=== PATIENT | male | born 1950 | race Caucasian/White ===

== ENCOUNTER 2017-01-22 06:48 | Inpatient (IN) | payer MEDICARE ==
[~2017-01-22] VITALS: Ht 175.3 cm; Wt 106.2 kg
[2017-01-22] MEDS: LR 1,000 ML IV SCH ×2 (00:30→12:15)
[2017-01-22] MEDS ORDERED: METO1TAB7 PO (06:57)
[2017-01-22] MEDS ORDERED: ASPI1TAB PO (06:57)
[2017-01-22] MEDS ORDERED: DIGO0.12 PO (06:57)
[2017-01-22] MEDS ORDERED: LISI-538 PO (06:57)
[2017-01-22] MEDS ORDERED: ELIQ5TAB PO (06:59)
[2017-01-22] MEDS ORDERED: ISOVUE-370 76% 100ML VIAL (Q9967) As Ordered ONE (08:04)
[2017-01-22 08:14] LABS: BASO % 0.1 % (0.0-1.0); EOS % 0.2 % (0.0-3.0); LARGE UNSTAINED CELL # 0.2 K/mm3 (0.0-0.4); LARGE UNSTAINED CELL % 1.5 % (0.0-4.0); LYMPH # 2.1 K/mm3 (1.5-4.5); LYMPH % 16.2 % (24.0-44.0); MEAN CORPUSCULAR HEMOGLOBIN 24.8 pg (27.0-33.0); MEAN CORPUSCULAR HGB CONC 32.3 g/dl (32.0-36.5); MEAN CORPUSCULAR VOLUME 76.8 fl (80.0-96.0); MONO # 1.1 K/mm3 (0.0-0.8); MONO % 8.9 % (0.0-5.0); NEUTROPHILS # 8.7 K/mm3 (1.8-7.7); NEUTROPHILS % 73.1 % (36.0-66.0); PLATELET COUNT, AUTOMATED 316 k/mm3 (150-450); RED CELL DISTRIBUTION WIDTH 17.4 % (11.5-14.5); WHITE BLOOD COUNT 11.9 K/mm3 (4.0-10.0)
[2017-01-22 08:36] LABS: ANION GAP 9 MEQ/L (8-16); BLOOD UREA NITROGEN 12 MG/DL (7-18); CALCIUM LEVEL 9.4 MG/DL (8.8-10.2); CARBON DIOXIDE LEVEL 28 MEQ/L (21-32); CHLORIDE LEVEL 99 MEQ/L (98-107); CREATININE FOR GFR 0.79 MG/DL (0.70-1.30); GLOMERULAR FILTRATION RATE > 60.0 (>49); GLUCOSE, FASTING 119 MG/DL (80-110); POTASSIUM SERUM 3.9 MEQ/L (3.5-5.1); SODIUM LEVEL 136 MEQ/L (136-145)
--- NOTE | 2017-01-22 08:39 | REP ---
Clinical: Abdominal pain. Technique: Single supine view of the abdomen and pelvis. Findings: Bowel gas pattern is nonspecific although there appears to be distended loops of small bowel measuring up to 5 cm diameter which may reflect early obstruction and correlation is recommended. Differential diagnosis includes ileus and enteritis. No obvious free air. No organomegaly. Skeletal structures demonstrate age-related degenerative changes. Phleboliths noted in the pelvis. Impression: Distended small bowel. Differential diagnosis includes early small bowel obstruction, ileus and enteritis. Close clinical observation and follow-up examination may be warranted. Signed by Kavon Irvin MD 01/22/2017 08:30 A
[2017-01-22] MEDS ORDERED: METOPROLOL SUCC (TopROL XL) 50MG **XL** TAB PO SCH (09:00)
--- NOTE | 2017-01-22 09:15 | REP ---
Clinical: Abdominal pain with history of umbilical hernia. Rule out obstruction. Comparison: None. Findings: Dilated fluid-filled small bowel extends to the cecum which also appears similarly distended and fluid-filled to the level of the proximal/mid ascending colon which then takes on a relatively normal and partially collapsed appearance to the level of the rectosigmoid. There is small amount of associated ascites as well as concern for subtle scattered hypodensities within the liver up to 1.8 cm in the posterior segment right lobe. A small midline periumbilical hernia is identified and contains small amount of fluid and stranding but without evidence for bowel. No free air or discrete drainable collection/abscess. The above mentioned findings are concerning for an obstructing lesion possibly at the level of the proximal ascending colon. Spleen, pancreas, bilateral adrenal glands and kidneys appear normal. Cholelithiasis noted without CT evidence for acute cholecystitis. Pelvis demonstrates partially collapsed normal bladder and age appropriate prostate/seminal vesicles. Small fat containing left inguinal hernia noted. Atherosclerotic changes of the aorta and vasculature noted without aneurysm. Musculoskeletal structures demonstrate degenerative changes without focal osseous abnormality. Lung bases are clear. Impression: 1. The above mentioned findings related to the small and proximal large bowel including fluid-filled dilatation as well as small amount of ascites and possible wall subtle hypodensities within the liver are concerning for the possibility of neoplastic obstruction possibly at the level of the proximal ascending colon. 2. Small ventral hernia contains fat and fluid without obstructing bowel. 3. Further chronic, nonacute changes as described above. Signed by Kavon Irvin MD 01/22/2017 09:07 A
[2017-01-22 09:26] LABS: ALBUMIN 3.5 GM/DL (3.2-5.2); ALBUMIN/GLOBULIN RATIO 0.83 (1.00-1.93); ALKALINE PHOSPHATASE 146 U/L (45-117); ALT/SGPT 29 U/L (12-78); AST/SGOT 21 U/L (15-37); BILIRUBIN,DIRECT 0.4 MG/DL (0.0-0.2); BILIRUBIN,TOTAL 1.2 MG/DL (0.2-1.0); TOTAL PROTEIN 7.7 GM/DL (6.4-8.2)
[2017-01-22] MEDS ORDERED: ONDANSETRON 4MG/2ML VIAL (J2405) IV PRN (12:15)
[2017-01-22] MEDS ORDERED: MORPHINE 2 MG/ML 1ML SYRINGE IV PRN (12:15)
[2017-01-22] MEDS ORDERED: MOM 30ML SUSPENSION UDC PO PRN (12:15)
[2017-01-22] MEDS ORDERED: ACETAMINOPHEN TAB 650MG DOSE (2X325MG) PO PRN (12:15)
[2017-01-22] MEDS: MAGNESIUM CITRATE 300 ML BTL PO ONE ×2 (12:30→21:28)
[2017-01-22] MEDS ORDERED: ERTAPENEM SODIUM 1 GM in NS MINI-BAG PLUS 50 ML IV SCH (13:00)
[2017-01-22] MEDS ORDERED: HEPARIN SOD (PORCINE) 5000 UNITS/ML VIAL IV PRN (13:45)
[2017-01-22] MEDS ORDERED: METOPROLOL 5 MG/5 ML VIAL IV SCH (13:45)
--- NOTE | 2017-01-22 14:28 | CR.PDOC ---
[facility] Consultation Consultation DATE OF CONSULTATION: Jan 22, 2017 at 06:48 PRIMARY CARE PHYSICIAN: Dr. Nate Mondragon, [place], [place] TECHNOLOGY SALES SPECIALIST: Dr. Marlo Case, [place], [place] REFERRING PROVIDER: Dr. Gonzalez ATTENDING PHYSICIAN: Dr. Montes REASON FOR CONSULTATION/CHIEF COMPLAINT: Bowel obstruction, medical consult. HISTORY OF PRESENT ILLNESS: Mr. Patrick is a 67-year-old male who presents to [facility]'s emergency Department with abdominal pain. Reports that the pain has been present for 4-6 months and was initially intermittent, but has become constant and has been worsening over the last one and half months. Patient reports the pain as a "rolling" type of pain that occurs every 2-3 minutes. Patient reports abdominal bloating. He states that there are times when the abdominal pain is minimal and he is able to consume meals without difficulty. However, there are times when he is unable to consume liquids or meals and he feels "stopped up." Patient reports taking laxatives and fleet enema and states that this causes a "blowout." He reports initial relief with the fleet enema, but states the abdominal distention and pain returns. Patient has not had an appetite over the last 2 days, feels weak, and has not been sleeping. Patient reports weight loss of approximately 20 pounds over the last 4-6 months due to abdominal pain and not being able to eat. Patient states that he has had intentional weight loss of approximately 80 pounds. Patient reports that at baseline he is able to perform all ADLs, walk up and down a flight of stairs, walk a city block all without reserve. Patient states that he had a transthoracic echocardiogram in July 2015 and a follow-up transesophageal echocardiogram in October 2015 and was reported to him that he had "a blood clot in his heart" so his drop worker opted not to perform a cardiac ablation. Patient states that he's had a cardioversion in 2014 which was unsuccessful. Patient reports a myocardial infarction at the age of 36 for which he presented to [facility]. He states that he was told it was heartburn and he was given Maalox. According to the patient in follow-up a drop worker did inform the patient that he had a heart attack. Follow-up catheterization, according to patient, revealed no damage and no stents were placed. Review of systems positive for back pain, chronic tinnitus. All of the review of systems besides positive review of systems listed previously are negative. ALLERGIES: Please see below. HOME MEDICATIONS: Please see below. PAST MEDICAL HISTORY: 1. Atrial fibrillation, on chronic anticoagulation. 2. Hypertension. 3. Myocardial infarction at age 36. 4. History of MRSA infection. PAST SURGICAL HISTORY: 1. Cardiac catheterization without stenting. 2. Cardiac cardioversion, 2014. 3. Transthoracic echocardiogram, July 2015. 4. Transesophageal echocardiogram, October 2015. 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 HEENT: Denies headache, blurry vision, double vision, transient loss of vision, itchy/scratchy eyes, nasal congestion, sinus congestion, tinnitus. CARDIOVASCULAR: Denies chest pain, palpitations. RESPIRATORY: Denies shortness of breath, wheeze. GENITOURINARY: Denies urinary frequency, urinary urgency, dysuria, hematuria. MUSCULOSKELETAL: Admits to weakness; denies muscular pain, joint pain. GASTROINTESTINAL: Admits to abdominal pain, abdominal distention, constipation; denies nausea, vomiting, diarrhea, melena, hematochezia. SKIN: Denies excessive bleeding, bruising, skin lesions, rashes. NEUROLOGICAL: Denies numbness, tingling. ENDOCRINE: Denies polyuria, polydipsia, polyphagia. HEMATOLOGIC/LYMPHATIC: Denies easy bruising, bleeding. ALLERGIC/IMMUNOLOGIC: Denies sinus congestion, itchy/watery eyes, nasal congestion. PHYSICAL EXAMINATION: VITAL SIGNS: Please see below. GENERAL APPEARANCE: Pleasant male dressed in hospital gown sitting in emergency department examination room in a chair, appears stated age, no apparent distress. HEENT: Atraumatic, normocephalic, PERRL, EOMI, oral mucosa appears pink and moist, nasal septum appears midline, edentulous (patient states he has his dentures, but does not currently wear them), nares are patent. RESPIRATORY: Clear to auscultation bilaterally, adequate inspiratory and extremity airway excursion, no wheeze, rhonchi, crackles. CARDIOVASCULAR: Irregularly irregular heart rate and rhythm, normal S1 and S2, no murmur, rub, click. ABDOMEN: Soft, distended, nontender, bowel sounds appreciated throughout. EXTREMITIES: +1 pitting edema noted in the bilateral lower extremities up to the level of the knee, peripheral pulses appreciated, equal, symmetrical, +2/4, without lesion or rash. NEUROLOGICAL: Cranial nerves II through XII appear grossly intact. PSYCHIATRIC: Alert and conversant, pleasant. LABORATORY DATA: Please see below. IMAGING: KUB IMPRESSION: Distended small bowel. Differential diagnosis includes early small bowel obstruction, ileus and enteritis. Close clinical observation and follow-up examination may be warranted. CT abdomen and pelvis with IV contrast only FINDINGS: Dilated fluid-filled small bowel extends to the cecum which also appears similarly distended and fluid-filled to the level of the proximal/mid ascending colon which then takes on a relatively normal and partially collapsed appearance to the level of the rectosigmoid. There is small amount of associated ascites as well as concern for subtle scattered hypodensities within the liver up to 1.8 cm in the posterior segment right lobe. A small midline periumbilical hernia is identified and contains small amount of fluid and stranding but without evidence for bowel. No free air or discrete drainable collection/abscess. The above mentioned findings are concerning for an obstructing lesion possibly at the level of the proximal ascending colon. Spleen, pancreas, bilateral adrenal glands and kidneys appear normal. Cholelithiasis noted without CT evidence for acute cholecystitis. Pelvis demonstrates partially collapsed normal bladder and age appropriate prostate/ seminal vesicles. Small fat containing left inguinal hernia noted. Atherosclerotic changes of the aorta and vasculature noted without aneurysm. Musculoskeletal structures demonstrate degenerative changes without focal osseous abnormality. Lung bases are clear. IMPRESSION: 1. The above mentioned findings related to the small and proximal large bowel including fluid-filled dilatation as well as small amount of ascites and possible wall subtle hypodensities within the liver are concerning for the possibility of neoplastic obstruction possibly at the level of the proximal ascending colon. 2. Small ventral hernia contains fat and fluid without obstructing bowel. 3. Further chronic, nonacute changes as described above. ASSESSMENT/PLAN: 1. Large bowel obstruction: Management deferred to primary team, general surgery. Patient's METS 4+. Cardiac risk index for preoperative risk is 6.6% and class III risk. 2. Atrial fibrillation: Adjusting patient's anticoagulation to heparin drip. Patient is on Eliquis outpatient. This is to prepare patient for surgery. Continue patient's digoxin and metoprolol. However, we'll continue patient's metoprolol as a divided dose with 25 mg twice a day. Also at patient's disposal will be metoprolol 5 mg IV every 6 hours when necessary for heart rate above 100. Obtained an EKG which showed atrial fibrillation. Obtaining stat transthoracic echocardiogram. Verbally discussed patient's case with drop worker on-call who stated that since patient's cardiac thrombus was revealed over a year ago and patient has been on chronic anticoagulation that there is no further recommendation to be made. Obtaining cardiology records from Dr. Case in [place], [place]. 3. Hypertension: Continue patient's lisinopril with holding parameters for systolic blood pressure < 110 and/or heart rate < 60. Obtaining primary care provider records from Dr. Mondragon in [place], [place]. 4. Microcytosis without anemia: Will obtain iron studies and reticulocyte count with a peripheral smear. Disposition: Admitted to the progressive care unit. Primary team is general surgery. Thank you for the consult. We will continue to follow this patient during his hospitalization. Vital Signs/I&O Vital Signs Date Time Temp Pulse Resp B/P (MAP) Pulse Ox O2 Delivery O2 Flow Rate FiO2 01/22/17 09:13 98.7 69 18 116/75 (89) 98 01/22/17 06:52 Room Air Laboratory Data Labs 24H Laboratory Tests 2 01/22/17 07:59: White Blood Count 11.9H, Red Blood Count 5.71, Hemoglobin 14.1, Hematocrit 43.8 , Mean Corpuscular Volume 76.8L, Mean Corpuscular Hemoglobin 24.8L, Mean Corpuscular Hemoglobin Concent 32.3, Red Cell Distribution Width 17.4H, Platelet Count 316, Neutrophils (%) (Auto) 73.1H, Lymphocytes (%) (Auto) 16.2L, Monocytes (%) (Auto) 8.9H, Eosinophils (%) (Auto) 0.2, Basophils (%) (Auto) 0.1 , Neutrophils # (Auto) 8.7H, Lymphocytes # (Auto) 2.1, Monocytes # (Auto) 1.1H, Eosinophils # (Auto) 0.0, Basophils # (Auto) 0.0, Large Unclassified Cells % 1.5 , Large Unclassified Cells # 0.2, Anion Gap 9, Glomerular Filtration Rate > 60.0 , Lactic Acid Level 1.8, Blood Urea Nitrogen 12, Creatinine 0.79, Sodium Level 136, Potassium Level 3.9, Chloride Level 99, Carbon Dioxide Level 28, Calcium Level 9.4, Aspartate Amino Transf (AST/SGOT) 21, Alanine Aminotransferase (ALT/ SGPT) 29, Alkaline Phosphatase 146H, Total Bilirubin 1.2H, Direct Bilirubin 0.4H , Total Protein 7.7, Albumin 3.5, Albumin/Globulin Ratio 0.83L CBC/BMP Laboratory Tests 01/22/17 07:59 Red Blood Count 5.71, Mean Corpuscular Volume 76.8 L, Mean Corpuscular Hemoglobin 24.8 L, Mean Corpuscular Hemoglobin Concent 32.3, Red Cell Distribution Width 17.4 H, Neutrophils (%) (Auto) 73.1 H, Lymphocytes (%) (Auto ) 16.2 L, Monocytes (%) (Auto) 8.9 H, Eosinophils (%) (Auto) 0.2, Basophils (%) (Auto) 0.1, Neutrophils # (Auto) 8.7 H, Lymphocytes # (Auto) 2.1, Monocytes # ( Auto) 1.1 H, Eosinophils # (Auto) 0.0, Basophils # (Auto) 0.0, Calcium Level 9.4 Allergies Coded Allergies: No Known Allergies (Unverified , 01/22/17) Home Medications Scheduled Apixaban Base (Eliquis) 5 Mg Tab, 5 MG PO BID, (Reported) Aspirin (Aspirin 81) 81 Mg Tab, 81 MG PO DAILY, (Reported) Digoxin (Digoxin) 0.125 Mg Tab, 0.125 MG PO DAILY, (Reported) Lisinopril (Lisinopril) 20 Mg Tab, 10 MG PO DAILY, (Reported) Metoprolol Succinate (Metoprolol Succinate ER) 50 Mg Tab, 50 MG PO DAILY, ( Reported) GME ATTESTATION GME ATTESTATION My preceptor for this patient encounter was physically present in the building during the encounter and was fully available. As needed, all aspects of the patient interview, examination, medical decision making process, and medical care plan development were reviewed and approved by the preceptor. Preceptor is aware and concurs with the plan as stated in the body of this note and will attest to such by his/her cosignature. ATTENDING NOTE I have both independently examined this patient as well as reviewed the note. I have discussed in detail with the resident the findings and plan of treatment as documented in the residents note. I will continue to follow the patient and offer further guidance to the patients care as necessary during this hospital stay. MAGI Qiu MDMEMarisela Jan 22, 2017 14:28 JOSE JUAN MONTES MD Jan 27, 2017 08:51
[2017-01-22 15:30] LABS: RETIC HEMOGLOBIN CONTENT CHr 28.7 PG (24-36); RETICULOCYTE % 1.5 % (0.5-1.5)
[2017-01-22 15:43] LABS: REASON FOR REVIEW COMPREHENSIVE REVIEW
[2017-01-22 16:02] LABS: PERCENT SATURATION 7.1 % (19.7-50.0)
[2017-01-22 16:15] VITALS: BP 137/95
[2017-01-22] MEDS: LISINOPRIL 10 MG TAB PO SCH (18:06)
[2017-01-22] MEDS: METOPROLOL TART 25 MG TABLET PO SCH ×2 (18:07→21:28)
[2017-01-22] MEDS: PANTOPRAZOLE 40MG INJ (PROTONIX) (C9113) IV SCH (18:08)
[2017-01-22] MEDS: DIGOXIN 0.125 MG TAB PO SCH (18:08)
[2017-01-22] MEDS: METOPROLOL 5 MG/5 ML VIAL IV SCH ×2 (18:09→22:30)
[2017-01-22] MEDS: ERTAPENEM SODIUM 1 GM in NS MINI-BAG PLUS 50 ML IV SCH (18:53)
[2017-01-22] MEDS: HEPARIN DRIP 25,000 UNITS in APPROPRIATE DILUENT 1 EA IV SCH (18:54)
[2017-01-22 19:55] VITALS: BP 138/91
[2017-01-22] MEDS ORDERED: CHLORASEPTIC SPRAY MT PRN (20:00)
[2017-01-22] MEDS ORDERED: CEPACOL LOZENGE PO PRN (20:00)
[2017-01-22 20:52] LABS: MAGNESIUM LEVEL 1.9 MG/DL (1.8-2.4)
[2017-01-22] MEDS: SENOKOT S TAB PO SCH (21:28)
[2017-01-22 23:43] VITALS: BP 152/90
[2017-01-23] MEDS: METOPROLOL 5 MG/5 ML VIAL IV SCH ×4 (03:28→21:36)
[2017-01-23] MEDS: LR 1,000 ML IV SCH ×3 (04:15→17:03)
[2017-01-23 05:42] LABS: MEAN CORPUSCULAR HEMOGLOBIN 24.3 pg (27.0-33.0); MEAN CORPUSCULAR HGB CONC 31.5 g/dl (32.0-36.5); MEAN CORPUSCULAR VOLUME 77.2 fl (80.0-96.0); RED CELL DISTRIBUTION WIDTH 17.5 % (11.5-14.5)
[2017-01-23 06:22] LABS: ALBUMIN 3.1 GM/DL (3.2-5.2); ALBUMIN/GLOBULIN RATIO 0.89 (1.00-1.93); ALKALINE PHOSPHATASE 112 U/L (45-117); ALT/SGPT 22 U/L (12-78); ANION GAP 10 MEQ/L (8-16); AST/SGOT 9 U/L (15-37); BLOOD UREA NITROGEN 12 MG/DL (7-18); CALCIUM LEVEL 8.5 MG/DL (8.8-10.2); CARBON DIOXIDE LEVEL 27 MEQ/L (21-32); CHLORIDE LEVEL 101 MEQ/L (98-107); CREATININE FOR GFR 0.64 MG/DL (0.70-1.30); GLOMERULAR FILTRATION RATE > 60.0 (>49); GLUCOSE, FASTING 100 MG/DL (80-110); MAGNESIUM LEVEL 2.1 MG/DL (1.8-2.4); POTASSIUM SERUM 3.8 MEQ/L (3.5-5.1); SODIUM LEVEL 138 MEQ/L (136-145); T UPTAKE 37 % (33-40); THYROXINE (T4) 10.2 UG/DL (4.5-12.0); TOTAL PROTEIN 6.6 GM/DL (6.4-8.2)
[2017-01-23 07:30] VITALS: BP 172/80
--- NOTE | 2017-01-23 07:53 | HPE ---
DATE OF ADMISSION: 01/22/2017 CHIEF COMPLAINT: Abdominal pain. HISTORY OF PRESENT ILLNESS: The patient is a 67-year-old male who presented to the emergency room with complaints of abdominal pain, bloating and crampy abdominal pains. These pains have been going on for about 4-6 months. They have been intermittent and he has been treating it with laxatives to have a bowel movement. Usually after he gets bloated, he is able to take laxatives and sometimes enemas, which usually cause a large volume of loose liquidy stool. Afterwards, he feels much relief. He has been going through this cycle for awhile. In addition to this, he has also had about an 80 pound weight loss for the past 6 months. He claims it is because he has not been eating much and he has been watching his diet. He has not had any previous colonoscopy in the past. No known family history of colon cancer or colon disease. He denies any fevers or chills. He has had a little bit of nausea with some vomiting now and he has had this for the past month intermittently. Prior to that, he did not have any problems with nausea or vomiting. His last bowel movement was yesterday, but it was just a small amount. Currently, he does not have any nausea or vomiting. No heartburn or acid reflux, but he is starting to feel increasingly weak. ALLERGIES: None. HOME MEDICATIONS: Please see med record. PAST MEDICAL HISTORY: 1. Atrial fibrillation, on Eliquis. 2. Hypertension and previous myocardial infarction ([place]) at the age of 36. 3. History of methicillin-resistant Staphylococcus aureus (MRSA) infection. PAST SURGICAL HISTORY: 1. Cardiac catheterization. 2. Transthoracic echo in 2016, followed by transesophageal echo which showed a blood clot in the heart. FAMILY HISTORY: Noncontributory. SOCIAL HISTORY: Denies any current drug, alcohol or tobacco abuse. REVIEW OF SYSTEMS: Per positives and negatives as stated in history of present illness (HPI). PHYSICAL EXAMINATION: General: The patient is alert and oriented times three in no acute distress. Vitals: Temperature 98.7, pulse 69, respirations 18, blood pressure 160/75, pulse oximetry 98% on room air. HEENT: Pupils equally round and react to light and accommodation. Heart: S1, S2, regular rate and rhythm. Lungs: Clear to auscultation bilaterally. Abdomen: Soft, slightly distended, diffuse tenderness, crampy type pain, no sharp pains. No rebounding or guarding. Extremities: No clubbing, cyanosis or edema. LABORATORY DATA: White count 11.9, hemoglobin 14.1 and platelets 316. PTT 28.1. Potassium 3.9, creatinine 0.79, lactic acid 1.8, total bilirubin 1.2, alkaline phosphatase 146, albumin 3.5. IMAGING STUDIES: CT of abdomen and pelvis shows small and proximal large bowel dilation as well as a small amount of ascites. There is subtle hypodensities in the liver concern for possibility of neoplastic obstruction, possible at the level of proximal ascending colon, small ventral hernia containing fat and fluid without obstructing bowel. ASSESSMENT/PLAN: The patient is a 67-year-old male presenting with no previous colonoscopy, recent weight loss, and likely ascending colon mass with liver lesions on CAT scan. I explained to the patient that at this time this is likely related to a metastatic colon cancer. However, it is difficult to discern at this time without a colonoscopy. Less likely this would be related to right-sided diverticulosis that has resulted in a stricture. With the lesion in the liver and the mass in the colon and the unexplained weight loss loss, this is more likely to be a malignancy than anything else. At this time, he will have NG tube for decompression. Would then like to start him on some laxatives to see if he can be cleared out to attempt a colonoscopy. The plan will likely be for colonoscopy followed within 24 hours by a laparoscopic colectomy. I explained this in detail to the patient and his . Understandably, this came as a shock to them and not planning to hear that diagnosis. However, we will attempt to prep him slowly to avoid the need for any type of colostomy or ileostomy. I did explain to him that even if this does not look like a mass during the colonoscopy he will likely still need a resection regardless due to the obstructive process that is going on. I have also asked the medicine team to consult due to his history of atrial fibrillation and anticoagulation. They are working on getting a cardiology consult to determine the need for repeating a YVONNE to see if he still has a clot in his heart. Will await their clearance prior to scheduling any type of surgery.
[2017-01-23] MEDS: METOPROLOL TART 25 MG TABLET PO SCH ×3 (08:05→21:36)
[2017-01-23] MEDS: DIGOXIN 0.125 MG TAB PO SCH (08:05)
[2017-01-23] MEDS: SENOKOT S TAB PO SCH ×2 (08:06→21:36)
[2017-01-23] MEDS: LISINOPRIL 10 MG TAB PO SCH (08:06)
[2017-01-23] MEDS: PANTOPRAZOLE 40MG INJ (PROTONIX) (C9113) IV SCH (08:08)
[2017-01-23] MEDS ORDERED: MAGNESIUM CITRATE 300 ML BTL PO ONE (09:00)
[2017-01-23 10:20] LABS: CARCINOEMBRYONIC ANTIGEN 1.7 NG/ML (<2.5)
[2017-01-23] MEDS: HEPARIN DRIP 25,000 UNITS in APPROPRIATE DILUENT 1 EA IV SCH (11:50)
[2017-01-23 12:00] VITALS: BP 160/90
[2017-01-23] MEDS: KETOROLAC 30 MG/ML VIAL (J1885) IV PRN ×2 (14:39→21:43)
[2017-01-23 16:00] VITALS: BP 158/91
[2017-01-23] MEDS: ERTAPENEM SODIUM 1 GM in NS MINI-BAG PLUS 50 ML IV SCH (17:03)
[2017-01-23 19:38] VITALS: BP 160/92
--- NOTE | 2017-01-23 20:38 | ECHO ---
DATE OF PROCEDURE: 01/23/2017 REFERRING PHYSICIAN: Dr. Reg Gonzalez and Yina James The study was performed on 01/23/2017 for indication cardiac dysrhythmias. The patient measures 175 cm and weighs 109 kg. DIMENSIONS: IVS: 1.3 LV: 6.0 LVPW: 1.2 LA: 4.4 Aorta: 3.8 FINDINGS: The study is of fair technical quality. Left ventricle is dilated and is globally hypokinetic. Septum is essentially akinetic. Apical segments were very poorly seen, but on some views, it appears that there might be actually dyskinetic apical motion. Overall ejection fraction is estimated in the neighborhood of 30%. Right ventricle appears dilated and mildly hypokinetic. Both atria are severely enlarged. Aortic valve has three cusps. It is sclerotic but mobility is preserved. Mitral valve also exhibits degenerative abnormalities with mitral annular calcifications, but mobility of leaflets is preserved. Tricuspid valve appears normal. Pulmonic valve also appears normal. Inferior vena cava is normal size. Aortic root, aortic arch and visualized segment of abdominal aorta appear grossly normal. Doppler interrogation reveals no significant aortic stenosis or insufficiency. There is trace mitral insufficiency and trace tricuspid insufficiency. Calculated pulmonary artery pressure is around 40 mmHg based on poor quality of TR jet, and I cannot rule out that actual PA pressure is higher. There is trace pulmonic insufficiency. Evaluation of diastolic function is inconclusive due to underlying atrial fibrillation but tissue Doppler velocities of mitral annulus are very low, and there is very rapid deceleration time on mitral inflow, indicative of likely advanced diastolic dysfunction. CONCLUSIONS: 1. Study is of fair technical quality. 2. Dilated globally hypokinetic left ventricle with septal wall motion abnormality and possibly dyskinetic motion of the apex. Overall estimated ejection fraction (EF) around 30%. 3. Hypokinetic right ventricle. 4. Severe biatrial enlargement. 5. No hemodynamically significant valvular disease. 6. Probably normal central venous pressure but at least moderate pulmonary hypertension. COMMENT: Subacute bacterial endocarditis (SBE) prophylaxis is not recommended. Of note, the patient was in atrial fibrillation with controlled rate during the study. Overall both ischemic and nonischemic etiology of the patient's cardiomyopathy should be considered.
--- NOTE | 2017-01-23 21:00 | ECGEPIP ---
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
[2017-01-24 00:22] VITALS: BP 130/81
[2017-01-24] MEDS: LR 1,000 ML IV SCH ×3 (01:21→18:21)
[2017-01-24 04:28] VITALS: BP 139/89
[2017-01-24] MEDS: METOPROLOL 5 MG/5 ML VIAL IV SCH ×4 (04:53→21:47)
[2017-01-24] MEDS: HEPARIN DRIP 25,000 UNITS in APPROPRIATE DILUENT 1 EA IV SCH ×2 (04:55→21:42)
[2017-01-24] MEDS: METOPROLOL TART 25 MG TABLET PO SCH ×3 (05:56→21:48)
[2017-01-24 06:36] LABS: MEAN CORPUSCULAR HEMOGLOBIN 25.1 pg (27.0-33.0); MEAN CORPUSCULAR HGB CONC 32.2 g/dl (32.0-36.5); MEAN CORPUSCULAR VOLUME 77.8 fl (80.0-96.0); RED CELL DISTRIBUTION WIDTH 17.2 % (11.5-14.5); WHITE BLOOD COUNT 11.8 K/mm3 (4.0-10.0)
[2017-01-24 06:58] LABS: ALBUMIN/GLOBULIN RATIO 0.86 (1.00-1.93); ALKALINE PHOSPHATASE 106 U/L (45-117); ALT/SGPT 22 U/L (12-78); ANION GAP 8 MEQ/L (8-16); AST/SGOT 14 U/L (15-37); BILIRUBIN,TOTAL 0.8 MG/DL (0.2-1.0); BLOOD UREA NITROGEN 13 MG/DL (7-18); CALCIUM LEVEL 8.6 MG/DL (8.8-10.2); CARBON DIOXIDE LEVEL 31 MEQ/L (21-32); CHLORIDE LEVEL 99 MEQ/L (98-107); CREATININE FOR GFR 0.61 MG/DL (0.70-1.30); GLOMERULAR FILTRATION RATE > 60.0 (>49); GLUCOSE, FASTING 92 MG/DL (80-110); MAGNESIUM LEVEL 2.3 MG/DL (1.8-2.4); POTASSIUM SERUM 3.6 MEQ/L (3.5-5.1); SODIUM LEVEL 138 MEQ/L (136-145); TOTAL PROTEIN 6.5 GM/DL (6.4-8.2)
[2017-01-24 08:00] VITALS: BP 144/82
[2017-01-24] MEDS: LISINOPRIL 10 MG TAB PO SCH (09:27)
[2017-01-24] MEDS: DIGOXIN 0.125 MG TAB PO SCH (09:28)
[2017-01-24] MEDS: SENOKOT S TAB PO SCH ×2 (09:28→19:28)
[2017-01-24] MEDS: PANTOPRAZOLE 40MG INJ (PROTONIX) (C9113) IV SCH (09:28)
[2017-01-24 12:00] VITALS: BP 138/78
[2017-01-24] MEDS: KETOROLAC 30 MG/ML VIAL (J1885) IV PRN (13:19)
[2017-01-24 15:57] VITALS: BP 142/78
[2017-01-24] MEDS: ERTAPENEM SODIUM 1 GM in NS MINI-BAG PLUS 50 ML IV SCH (16:08)
[2017-01-24 20:55] VITALS: BP 160/90
[2017-01-25 00:03] VITALS: BP 160/90
[2017-01-25] MEDS: LR 1,000 ML IV SCH ×3 (02:35→20:15)
[2017-01-25] MEDS: METOPROLOL 5 MG/5 ML VIAL IV SCH ×4 (03:02→22:17)
[2017-01-25] MEDS: KETOROLAC 30 MG/ML VIAL (J1885) IV PRN (04:33)
[2017-01-25 04:35] VITALS: BP 130/90
[2017-01-25] MEDS: METOPROLOL TART 25 MG TABLET PO SCH (05:38)
[2017-01-25 06:13] LABS: MEAN CORPUSCULAR HEMOGLOBIN 24.9 pg (27.0-33.0); MEAN CORPUSCULAR HGB CONC 31.3 g/dl (32.0-36.5); MEAN CORPUSCULAR VOLUME 79.4 fl (80.0-96.0); RED CELL DISTRIBUTION WIDTH 17.4 % (11.5-14.5); WHITE BLOOD COUNT 11.7 K/mm3 (4.0-10.0)
[2017-01-25 07:10] LABS: ALBUMIN 2.8 GM/DL (3.2-5.2); ALBUMIN/GLOBULIN RATIO 0.85 (1.00-1.93); ALKALINE PHOSPHATASE 95 U/L (45-117); ALT/SGPT 19 U/L (12-78); ANION GAP 11 MEQ/L (8-16); AST/SGOT 18 U/L (15-37); BILIRUBIN,TOTAL 0.7 MG/DL (0.2-1.0); BLOOD UREA NITROGEN 12 MG/DL (7-18); CALCIUM LEVEL 7.6 MG/DL (8.8-10.2); CARBON DIOXIDE LEVEL 29 MEQ/L (21-32); CHLORIDE LEVEL 101 MEQ/L (98-107); CREATININE FOR GFR 0.57 MG/DL (0.70-1.30); GLOMERULAR FILTRATION RATE > 60.0 (>49); GLUCOSE, FASTING 85 MG/DL (80-110); MAGNESIUM LEVEL 2.2 MG/DL (1.8-2.4); POTASSIUM SERUM 3.6 MEQ/L (3.5-5.1); SODIUM LEVEL 141 MEQ/L (136-145); TOTAL PROTEIN 6.1 GM/DL (6.4-8.2)
[2017-01-25 08:00] VITALS: BP 152/88
--- NOTE | 2017-01-25 08:08 | IPNPDOC ---
Text Note Date of Service The patient was seen on 01/25/17. NOTE Subjective: Patient seen and examined at bedside. No acute overnight events reported. No new medical complaints. Objective: GENERAL: NAD HEENT: NC/AT, PERRL, EOMI, NG tube in place draining brown material, edentulous (patient states he has his dentures, but does not currently wear them) RESPIRATORY: Clear to auscultation bilaterally, adequate inspiratory and extremity airway excursion, no wheeze, rhonchi, crackles. CARDIOVASCULAR: Irregularly irregular heart rate and rhythm, normal S1 and S2, no murmur, rub, click. ABDOMEN: Soft, obese, distended, nontender, bowel sounds appreciated throughout. EXTREMITIES: +1 pitting edema noted in the bilateral lower extremities up to the level of the knee, peripheral pulses appreciated, equal, symmetrical NEUROLOGICAL: Cranial nerves II through XII appear grossly intact. PSYCHIATRIC: Alert, awake oriented and conversant, pleasant. ASSESSMENT/PLAN: 1. Large bowel obstruction - Management as per primary team, general surgery - Patient's METS 4+. Cardiac risk index for preoperative risk is 6.6% and class III risk. - plan is for surgery on Sunday01/26/17 for ines-colectomy - cardiology consultation pending 2. Atrial fibrillation - RVR - have increased metoprolol - cardiology consultation pending - complicated with known left atrial thrombus - NOAC discontinued - replaced with heparin gtt - continue digoxin - continue metoprolol 5 mg IV every 6 hours when necessary for heart rate above 100 - TTE noted - Obtaining cardiology records from Dr. Case in [place], [place]. 3. Hypertension - Continue lisinopril - obtain provider records from Dr. Mondragon in [place], [place] - continue metoprolol 4. Microcytosis without anemia - Will obtain iron studies and reticulocyte count with a peripheral smear. 5. DVT prophylaxis - as per above heparin gtt Disposition: Plan for surgical intervention - ines-colectomy on Sunday01/26/17 VS,Carlito, I+O VS, Carlito, I+O Laboratory Tests 01/25/17 05:52 Red Blood Count 5.12, Mean Corpuscular Volume 79.4 L, Mean Corpuscular Hemoglobin 24.9 L, Mean Corpuscular Hemoglobin Concent 31.3 L, Red Cell Distribution Width 17.4 H, Calcium Level 7.6 L, Aspartate Amino Transf (AST/SGOT ) 18, Alanine Aminotransferase (ALT/SGPT) 19, Alkaline Phosphatase 95, Total Bilirubin 0.7, Total Protein 6.1 L, Albumin 2.8 L Vital Signs Date Time Temp Pulse Resp B/P (MAP) Pulse Ox O2 Delivery O2 Flow Rate FiO2 01/25/17 05:38 115 130/90 01/25/17 04:35 98.3 18 96 Room Air I&O- Last 24 Hours up to 6 AM 01/25/17 05:59 Intake Total 3490 ml Output Total 1950 ml Balance 1540 ml CHARLENE JUDD MD Jan 25, 2017 08:08
[2017-01-25] MEDS: DIGOXIN 0.125 MG TAB PO SCH (08:33)
[2017-01-25] MEDS: PANTOPRAZOLE 40MG INJ (PROTONIX) (C9113) IV SCH (08:34)
[2017-01-25] MEDS: LISINOPRIL 10 MG TAB PO SCH (08:34)
[2017-01-25] MEDS: SENOKOT S TAB PO SCH ×2 (08:36→20:28)
[2017-01-25] MEDS ORDERED: METOPROLOL SUCC (TopROL XL) 50MG **XL** TAB PO SCH ×2 (11:15→21:00)
[2017-01-25] MEDS: METOPROLOL TART 50 MG TAB PO SCH ×2 (11:49→20:48)
[2017-01-25 12:00] VITALS: BP 142/88
[2017-01-25] MEDS ORDERED: FLEET ENEMA PR ONE ×2 (13:45→17:15)
[2017-01-25] MEDS: HEPARIN DRIP 25,000 UNITS in APPROPRIATE DILUENT 1 EA IV SCH (15:23)
[2017-01-25 15:36] VITALS: BP 164/90
[2017-01-25] MEDS ORDERED: SODIUM CHLORIDE 0.9% INJ 10 ML SYR IV PRN (15:45)
[2017-01-25] MEDS: ERTAPENEM SODIUM 1 GM in NS MINI-BAG PLUS 50 ML IV SCH (16:57)
[2017-01-25] MEDS ORDERED: FAT EMULSION IV 20% 500 ML IV SCH (18:00)
[2017-01-25] MEDS ORDERED: AMINO AC/ELECTROLYTE/DEX/CALC 2,000 ML IV SCH (18:00)
[2017-01-25] MEDS: HumaLOG INSULIN (NovoLOG) PER UNIT SC SCH ×2 (18:00→23:54)
[2017-01-25] MEDS: SODIUM CHLORIDE 0.9% INJ 10 ML SYR IV SCH (18:00)
[2017-01-25 20:00] VITALS: BP 144/80
[2017-01-26] VITALS: BP 148/77
[2017-01-26 04:00] VITALS: BP 150/98
[2017-01-26 04:39] LABS: MEAN CORPUSCULAR HEMOGLOBIN 24.8 pg (27.0-33.0); MEAN CORPUSCULAR HGB CONC 31.5 g/dl (32.0-36.5); MEAN CORPUSCULAR VOLUME 78.6 fl (80.0-96.0); RED CELL DISTRIBUTION WIDTH 17.1 % (11.5-14.5); WHITE BLOOD COUNT 12.2 K/mm3 (4.0-10.0)
[2017-01-26] MEDS: METOPROLOL 5 MG/5 ML VIAL IV SCH ×4 (04:39→20:41)
[2017-01-26] MEDS: LR 1,000 ML IV SCH (04:40)
[2017-01-26] MEDS: SODIUM CHLORIDE 0.9% INJ 10 ML SYR IV SCH ×2 (05:13→15:38)
[2017-01-26 05:16] LABS: ALKALINE PHOSPHATASE 95 U/L (45-117); ALT/SGPT 19 U/L (12-78); ANION GAP 4 MEQ/L (8-16); AST/SGOT 20 U/L (15-37); BILIRUBIN,TOTAL 0.6 MG/DL (0.2-1.0); BLOOD UREA NITROGEN 10 MG/DL (7-18); CALCIUM LEVEL 7.9 MG/DL (8.8-10.2); CARBON DIOXIDE LEVEL 33 MEQ/L (21-32); CHLORIDE LEVEL 100 MEQ/L (98-107); CREATININE FOR GFR 0.74 MG/DL (0.70-1.30); GLOMERULAR FILTRATION RATE > 60.0 (>49); GLUCOSE, FASTING 96 MG/DL (80-110); MAGNESIUM LEVEL 2.3 MG/DL (1.8-2.4); POTASSIUM SERUM 3.6 MEQ/L (3.5-5.1); SODIUM LEVEL 137 MEQ/L (136-145)
[2017-01-26] MEDS: HumaLOG INSULIN (NovoLOG) PER UNIT SC SCH ×3 (05:20→17:04)
[2017-01-26 07:25] VITALS: BP 164/98
[2017-01-26] MEDS ORDERED: FLEET ENEMA PR ONE (08:00)
[2017-01-26] MEDS: HEPARIN DRIP 25,000 UNITS in APPROPRIATE DILUENT 1 EA IV SCH ×2 (08:08→22:25)
[2017-01-26] MEDS: METOPROLOL TART 50 MG TAB PO SCH ×2 (09:18→20:48)
[2017-01-26] MEDS: PANTOPRAZOLE 40MG INJ (PROTONIX) (C9113) IV SCH (09:18)
[2017-01-26] MEDS: SENOKOT S TAB PO SCH ×2 (09:19→20:47)
[2017-01-26] MEDS: LISINOPRIL 10 MG TAB PO SCH (09:19)
[2017-01-26] MEDS: DIGOXIN 0.125 MG TAB PO SCH (09:19)
[2017-01-26] MEDS ORDERED: PROPOFOL 200 MG/20 ML VIAL As Ordered ONE (10:39)
[2017-01-26] MEDS ORDERED: MIDAZOLAM INJ 2 MG/2 ML VIAL (J2250) As Ordered ONE (10:39)
[2017-01-26] MEDS ORDERED: LIDOCAINE 2% INJ 100 MG/5 ML SDV (FOR ANES.) As Ordered ONE (10:39)
[2017-01-26 12:05] VITALS: BP 131/80
--- NOTE | 2017-01-26 13:20 | ROOR ---
Patient Name: Duarte Patrick Procedure Date: 01/26/2017 9:53 AM Date of : 1950 Age: 67 Gender: Male Note Status: Finalized Procedure: Colonoscopy Indications: Abnormal CT of the GI tract Providers: Reg Gonzalez DO Referring MD: Reg Gonzalez DO Requesting Provider: Medicines: Propofol per Anesthesia Complications: No immediate complications. Procedure: Pre-Anesthesia Assessment: - Prior to the procedure, a History and Physical was performed, and patient medications and allergies were reviewed. The patient is competent. The risks and benefits of the procedure and the sedation options and risks were discussed with the patient. All questions were answered and informed consent was obtained. Patient identification and proposed procedure were verified by the physician, the nurse, the cigar wrapper tender automatic and the generation technician in the procedure room. Mental Status Examination: alert and oriented. Airway Examination: normal oropharyngeal airway and neck mobility. Respiratory Examination: clear to auscultation. CV Examination: normal. Prophylactic Antibiotics: The patient does not require prophylactic antibiotics. Prior Anticoagulants: The patient has taken heparin. ASA Grade Assessment: III - A patient with severe systemic disease. After reviewing the risks and benefits, the patient was deemed in satisfactory condition to undergo the procedure. The anesthesia plan was to use monitored anesthesia care (MAC). Immediately prior to administration of medications, the patient was re-assessed for adequacy to receive sedatives. The heart rate, respiratory rate, oxygen saturations, blood pressure, adequacy of pulmonary ventilation, and response to care were monitored throughout the procedure. The physical status of the patient was re-assessed after the procedure. The Colonoscope was introduced through the anus and advanced to the ascending colon. The colonoscopy was performed without difficulty. The patient tolerated the procedure well. Findings: A fungating completely obstructing large mass was found in the proximal ascending colon. The mass was circumferential. Oozing was present. Biopsies were taken with a cold forceps for histology. Estimated blood loss was minimal. The exam was otherwise without abnormality. Impression: - Likely malignant completely obstructing tumor in the proximal ascending colon. Biopsied. - The examination was otherwise normal. Recommendation: - Return patient to hospital [facility] for ongoing care. - Await pathology results. Attending Participation: I personally performed the entire procedure. Reg Gonzalez DO 01/26/2017 1:20:22 PM This report has been signed electronically. Number of Addenda: 0 Note Initiated On: 01/26/2017 9:53 AM Estimated Blood Loss: Estimated blood loss was minimal.
--- NOTE | 2017-01-26 14:19 | REP ---
Procedure: PICC line insertion with Priscila The procedure was performed under the direct supervision of Dr. Allan. The risks and benefits of the procedure were explained to the patient and informed consent was obtained. The right basilic vein was localized using ultrasound guidance. The skin was prepped and draped in a sterile fashion. 2% lidocaine was used as a local anesthetic. Using ultrasound guidance the basilic vein was cannulated and a 0.018 guidewire was inserted and advanced to the SVC using fluoroscopic guidance. The needle was removed and a 5.5 Turkish dilator and peel-away sheath was inserted over the guide wire. A 5.5 Turkish dual lumen catheter was cut to length of 44 cm. The dilator was removed and the catheter was inserted over the guide wire with the tip ending in the SVC. The peel-away sheath was removed and the catheter was flushed with heparinized saline as per Hospital protocol. The catheter was affixed to the skin and a sterile dressing was applied. The the patient tolerated the procedure well and there were no immediate complications. 0.1 minutes of fluoro time was utilized for this procedure. Reviewed by CHELO Dewitt 01/25/2017 04:15 PSigned by Braxton Allan MD 01/26/2017 02:10 P
[2017-01-26] MEDS: ERTAPENEM SODIUM 1 GM in NS MINI-BAG PLUS 50 ML IV SCH (15:44)
[2017-01-26 16:00] VITALS: BP 133/65
[2017-01-26] MEDS ORDERED: HumaLOG INSULIN (NovoLOG) PER UNIT SC SCH (18:00)
[2017-01-26] MEDS ORDERED: AMINO AC/ELECTROLYTE/DEX/CALC 2,000 ML IV SCH (18:00)
[2017-01-26] MEDS ORDERED: FAT EMULSION IV 20% 500 ML IV SCH (18:00)
[2017-01-26] MEDS ORDERED: GLUCOSE 4 GM CHEW TABLET PO PRN (18:30)
[2017-01-26] MEDS ORDERED: GLUCAGON FOR INJ 1 MG VIAL (J1610) SC PRN (18:30)
[2017-01-26] MEDS ORDERED: DEXTROSE 50% 50 ML SYRINGE IV PRN (18:30)
[2017-01-26 19:57] VITALS: BP 146/68
[2017-01-27] VITALS (7 sets, daily range): BP systolic 118–160; BP diastolic 56–82
[2017-01-27] MEDS: METOPROLOL 5 MG/5 ML VIAL IV SCH ×4 (04:00→22:00)
[2017-01-27] MEDS: SODIUM CHLORIDE 0.9% INJ 10 ML SYR IV SCH ×2 (05:01→18:40)
[2017-01-27] MEDS: HumaLOG INSULIN (NovoLOG) PER UNIT SC SCH ×6 (05:33→23:19)
[2017-01-27 06:20] LABS: MEAN CORPUSCULAR HEMOGLOBIN 31.5 pg (27.0-33.0); MEAN CORPUSCULAR HGB CONC 34.8 g/dl (32.0-36.5); RED CELL DISTRIBUTION WIDTH 17.4 % (11.5-14.5); WHITE BLOOD COUNT 7.3 K/mm3 (4.0-10.0)
[2017-01-27 06:21] LABS: MEAN CORPUSCULAR VOLUME 90.5 fl (80.0-96.0)
[2017-01-27 08:01] LABS: ALBUMIN 2.7 GM/DL (3.2-5.2); ALKALINE PHOSPHATASE 88 U/L (45-117); ALT/SGPT 19 U/L (12-78); ANION GAP 8 MEQ/L (8-16); AST/SGOT 20 U/L (15-37); BILIRUBIN,TOTAL 0.5 MG/DL (0.2-1.0); BLOOD UREA NITROGEN 10 MG/DL (7-18); CALCIUM LEVEL 7.7 MG/DL (8.8-10.2); CARBON DIOXIDE LEVEL 29 MEQ/L (21-32); CHLORIDE LEVEL 104 MEQ/L (98-107); CREATININE FOR GFR 0.55 MG/DL (0.70-1.30); GLOMERULAR FILTRATION RATE > 60.0 (>49); GLUCOSE, FASTING 119 MG/DL (80-110); MAGNESIUM LEVEL 2.1 MG/DL (1.8-2.4); POTASSIUM SERUM 3.6 MEQ/L (3.5-5.1); SODIUM LEVEL 141 MEQ/L (136-145); TOTAL PROTEIN 5.7 GM/DL (6.4-8.2)
--- NOTE | 2017-01-27 08:45 | IPNPDOC ---
Text Note Date of Service The patient was seen on 01/27/17. NOTE Subjective: Patient seen and examined at bedside. No acute overnight events reported. No new medical complaints. Objective: GENERAL: NAD, sitting comfortably in chair HEENT: NC/AT, PERRL, EOMI, NG tube in place, edentulous (patient states he has his dentures, but does not currently wear them) RESPIRATORY: CTA B/L. CARDIOVASCULAR: Irregularly irregular, +S1S2 ABDOMEN: Soft, obese, distended, NT, +BS EXTREMITIES: +1 pitting edema B/L LE PSYCHIATRIC: AAOx3, conversant, pleasant. ASSESSMENT/PLAN: 1. Proximal ascending colon total obstruction - high suspicion for malignancy - pathology results pending - s/p colonoscopy 01/26/17 - management as per primary team, general surgery - patient previously optimized for planned surgical intervention - Patient's METS 4+. Cardiac risk index for preoperative risk is 6.6% and class III risk. - plan is for ines-colectomy - 01/29/17 2. Atrial fibrillation - RVR resolved - have increased metoprolol - cardiology consultation pending - complicated with known left atrial thrombus - NOAC discontinued - replaced with heparin gtt - continue digoxin - continue metoprolol 5 mg IV every 6 hours when necessary for heart rate above 100 - TTE noted - Obtaining cardiology records from Dr. Case in [place], [place]. 3. Hypertension - Continue lisinopril - obtain provider records from Dr. Mondragon in [place], [place] - continue metoprolol 4. Microcytosis without anemia 5. DVT prophylaxis - as per above heparin gtt Disposition: Plan for surgical intervention - ines-colectomy on 01/29/17 VS,Carlito, I+O VS, Carlito, I+O Laboratory Tests 01/27/17 05:50 Red Blood Count 4.10 L, Mean Corpuscular Volume 90.5 #, Mean Corpuscular Hemoglobin 31.5, Mean Corpuscular Hemoglobin Concent 34.8, Red Cell Distribution Width 17.4 H 01/27/17 07:00 Calcium Level 7.7 L, Aspartate Amino Transf (AST/SGOT) 20, Alanine Aminotransferase (ALT/SGPT) 19, Alkaline Phosphatase 88, Total Bilirubin 0.5, Total Protein 5.7 L, Albumin 2.7 L Vital Signs Date Time Temp Pulse Resp B/P (MAP) Pulse Ox O2 Delivery O2 Flow Rate FiO2 01/27/17 07:25 96.9 61 20 140/70 (93) 97 Room Air I&O- Last 24 Hours up to 6 AM 01/27/17 05:59 Intake Total 2890 ml Output Total 1200 ml Balance 1690 ml CHARLENE JUDD MD Jan 27, 2017 08:45
[2017-01-27] MEDS: PANTOPRAZOLE 40MG INJ (PROTONIX) (C9113) IV SCH ×2 (09:00→09:25)
[2017-01-27] MEDS: METOPROLOL TART 50 MG TAB PO SCH ×2 (09:25→20:16)
[2017-01-27] MEDS: LISINOPRIL 10 MG TAB PO SCH (09:25)
[2017-01-27] MEDS: DIGOXIN 0.125 MG TAB PO SCH (09:25)
[2017-01-27] MEDS: SENOKOT S TAB PO SCH ×2 (09:26→20:16)
[2017-01-27 13:20] LABS: DIGOXIN LEVEL 0.3 NG/ML (0.5-2.0)
[2017-01-27] MEDS: ERTAPENEM SODIUM 1 GM in NS MINI-BAG PLUS 50 ML IV SCH (15:40)
[2017-01-27] MEDS: HEPARIN DRIP 25,000 UNITS in APPROPRIATE DILUENT 1 EA IV SCH (15:41)
--- NOTE | 2017-01-27 16:55 | IPN ---
DATE: 01/27/2017 SUBJECTIVE: The patient is awaiting a right hemicolectomy for an obstructing right colon cancer. Surgery is tentatively planned for January 29. The patient denies any abdominal pain. He has been having some loose watery stools. He remains on total parenteral nutrition (TPN). OBJECTIVE: Most recent vital signs: Temperature 96, pulse 60, respirations 18 and blood pressure of 130/80. Room air oxygen saturation was 98. Intake and output on 01/26 was 3550 in, with 400 out, as well as some unrecorded voided urine. So far on 01/27, he has 800 mL of urine recorded. PHYSICAL EXAMINATION: The patient is sitting up in chair. He appears comfortable. He has some questions about the causes of his diarrhea. Sclerae are anicteric. His skin is warm and dry. Heart exam shows an irregular rhythm. The lungs are clear. The abdomen is soft and nontender. He has some pitting edema of his lower extremities. LABORATORY DATA: Today, white count is seven, hemoglobin 13, hematocrit 37 with a platelet count of 203. Chemistry profile, electrolytes were normal. BUN is 10 with a creatinine of 0.6 and the glucose is 119. Total protein is 5.7 with an albumin of 2.7. His digoxin level today is 0.3. IMPRESSION: Obstructing right colon cancer. PLAN: Patient is anticipating surgery on Monday 01/29. He is on total parenteral nutrition. He has a nasogastric tube in place which is clamped during the day and to intermittent suction at night per Dr. Gonzalez's orders. The patient reports he is having some loose stool and I reassured him that this should not be a problem for his surgery. His TPN will be continued. I will try to determine if a carcinoembryonic antigen (CEA) level has been done and if not, will order one. KELBY
[2017-01-27] MEDS ORDERED: FAT EMULSION IV 20% 500 ML IV SCH (18:00)
[2017-01-27] MEDS ORDERED: AMINO AC/ELECTROLYTE/DEX/CALC 2,000 ML IV SCH (18:00)
[2017-01-27] MEDS ORDERED: HumaLOG INSULIN (NovoLOG) PER UNIT SC SCH (20:30)
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
[2017-01-28] MEDS: METOPROLOL 5 MG/5 ML VIAL IV SCH ×4 (04:00→22:00)
[2017-01-28 04:08] VITALS: BP 138/72
[2017-01-28] MEDS: SODIUM CHLORIDE 0.9% INJ 10 ML SYR IV SCH ×2 (05:53→18:00)
[2017-01-28] MEDS: HumaLOG INSULIN (NovoLOG) PER UNIT SC SCH ×4 (06:00→23:48)
[2017-01-28 06:02] LABS: MEAN CORPUSCULAR HEMOGLOBIN 24.6 pg (27.0-33.0); MEAN CORPUSCULAR HGB CONC 30.7 g/dl (32.0-36.5); RED CELL DISTRIBUTION WIDTH 17.3 % (11.5-14.5); WHITE BLOOD COUNT 7.5 K/mm3 (4.0-10.0)
[2017-01-28 06:30] LABS: MEAN CORPUSCULAR VOLUME 80.2 fl (80.0-96.0)
[2017-01-28 06:55] LABS: ALBUMIN 2.9 GM/DL (3.2-5.2); ALBUMIN/GLOBULIN RATIO 0.94 (1.00-1.93); ALKALINE PHOSPHATASE 96 U/L (45-117); ALT/SGPT 21 U/L (12-78); ANION GAP 8 MEQ/L (8-16); AST/SGOT 26 U/L (15-37); BILIRUBIN,TOTAL 0.5 MG/DL (0.2-1.0); BLOOD UREA NITROGEN 10 MG/DL (7-18); CALCIUM LEVEL 8.6 MG/DL (8.8-10.2); CARBON DIOXIDE LEVEL 28 MEQ/L (21-32); CHLORIDE LEVEL 105 MEQ/L (98-107); CREATININE FOR GFR 0.59 MG/DL (0.70-1.30); GLOMERULAR FILTRATION RATE > 60.0 (>49); GLUCOSE, FASTING 83 MG/DL (80-110); MAGNESIUM LEVEL 2.2 MG/DL (1.8-2.4); POTASSIUM SERUM 4.2 MEQ/L (3.5-5.1); SODIUM LEVEL 141 MEQ/L (136-145)
[2017-01-28 07:40] VITALS: BP 130/88
[2017-01-28] MEDS: LISINOPRIL 10 MG TAB PO SCH (08:37)
[2017-01-28] MEDS: METOPROLOL TART 50 MG TAB PO SCH ×2 (08:37→21:10)
[2017-01-28] MEDS: PANTOPRAZOLE 40MG INJ (PROTONIX) (C9113) IV SCH (08:37)
[2017-01-28] MEDS: SENOKOT S TAB PO SCH ×2 (08:37→21:00)
[2017-01-28] MEDS: HEPARIN DRIP 25,000 UNITS in APPROPRIATE DILUENT 1 EA IV SCH (08:56)
--- NOTE | 2017-01-28 09:10 | ECGEPIP ---
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
--- NOTE | 2017-01-28 10:25 | IPN ---
DATE: 01/28/2017 Patient is awaiting surgery for his right colon cancer tomorrow. He is alert and oriented, sitting up in a chair. His heparin drip continues as does his total parenteral nutrition (TPN). His nasogastric (NG) tube is in place but clamped. Vital signs this morning show a temperature of 97.4, pulse 56, respirations 18, blood pressure 130/88 with a room air saturation of 98%. Intake and output 01/27/2017 showed 24 60 and 2100 out with several small loose bowel movements. Physical exam shows a pleasant man in no obvious discomfort. Heart exam shows an irregular rhythm. The lungs are clear. The abdomen is soft with active bowel sounds and is nontender. Lower extremities show some pitting edema in the lower legs. Labs: WBC 7.5, hemoglobin 12, hematocrit 38 and platelet count 173,000. PTT this morning is 75.3. Chemistry panel shows normal electrolytes with BUN of 10, creatinine 0.6 and glucose 83. Total protein is 6.0 with an albumin of 2.9. IMPRESSION: 1. Obstructing right colon cancer, now currently adequately decompressed with some small loose bowel movements. 2. Atrial fibrillation on heparin drip. PLAN: Patient is for right hemicolectomy as an add-on on 01/29/2017. His heparin will need to be discontinued appropriately. I will continue his TPN today. MTDD
[2017-01-28 12:00] VITALS: BP 128/72
--- NOTE | 2017-01-28 12:07 | IPN ---
DATE: 01/28/2017 Mr. Duarte Patrick was seen this morning. He was sitting in the chair, in no acute distress at rest and his was at bedside. He denies any chest pain, shortness of breath, palpitations. He has been ambulating. He denies any bleeding. He has no cough. The immediate plan is to proceed with abdominal surgery tomorrow, 01/29/2017. On physical examination: Patient is alert and oriented, in no acute distress at rest, and his vital signs this morning revealed a blood pressure 130/88 with a pulse that varies between 56-84, respirations 18 and his maximum temperature is 97.6 degrees Fahrenheit with an oxygen saturation of 98% on room air. He has a positive fluid balance of about 300 mL on 01/27/2017 and on 01/26/2017 it was 3.1 liters. His weight today is 106.5 kg and yesterday it was 106.6 kg. Examination of the head is as normocephalic, atraumatic. The lungs did not reveal any wheezing or crackles. The heart examination revealed irregularly irregular heart sounds, 4 gallops. The point of maximal impulse (PMI) is slightly displaced inferiorly. There is no rub. I could not appreciate any murmurs. Abdominal examination was not done. Extremities revealed trace to +1 bilateral lower leg edema. Neurological examination is negative for focal deficit. LABORATORIES: CBC on 01/28/2017 revealed a WBC of 7.5, hemoglobin 11.7, hematocrit 38.1 and platelets 173,000. BMP revealed a sodium of 141, potassium 4.2, chloride 105, CO2 28, BUN 10, creatinine 0.59, GFR more than 60, fasting glucose 83, and calcium 8.6. Serum magnesium is 2.2. Strips were reviewed and revealed atrial fibrillation with a controlled ventricular rate. Mr. Duarte Patrick seems to be stable from a cardiac point of view. He gave a history of CAD, myocardial infarction many years ago, and on the echocardiogram done on 01/23/2017 he was found to have a depressed global left ventricular systolic function estimated at 30%. Prior to that, he thinks that his heart function has been stable. He is well compensated, on a beta-peyton and angiotensin-converting enzyme (HARMONY) inhibitor. His digoxin was discontinued yesterday because of bradycardia and reported pauses. He may proceed as scheduled of his surgery, moderate risk and fluid overload should be avoided. After the surgery, he can be started on IV Lopressor. The HARMONY inhibitor can be held, but if needed for his blood pressure, it can be given also IV HARMONY inhabitants. IV furosemide can be used as needed to control his fluid balance. We should continue with telemetry and deep venous thrombosis (DVT) prophylaxis. Currently, he is on IV heparin. Sometime this coming week, as mentioned in the consult note, we should try to get a copy of his echocardiogram and transesophageal echocardiogram done last year by his parts picker in [place] for possible thrombus noted at the apex of the left ventricle. KELBY
[2017-01-28 16:00] VITALS: BP 120/82
[2017-01-28] MEDS: ERTAPENEM SODIUM 1 GM in NS MINI-BAG PLUS 50 ML IV SCH (16:14)
[2017-01-28] MEDS ORDERED: AMINO AC/ELECTROLYTE/DEX/CALC 2,000 ML IV SCH (18:00)
[2017-01-28] MEDS ORDERED: FAT EMULSION IV 20% 500 ML IV SCH (18:00)
[2017-01-28 19:45] VITALS: BP 138/72
[2017-01-28 23:20] VITALS: BP 130/74
[2017-01-29] VITALS (8 sets, daily range): BP systolic 116–222; BP diastolic 62–130
[2017-01-29] MEDS: METOPROLOL 5 MG/5 ML VIAL IV SCH ×4 (04:00→22:39)
[2017-01-29] MEDS: SODIUM CHLORIDE 0.9% INJ 10 ML SYR IV SCH ×2 (04:58→18:00)
[2017-01-29] MEDS: HumaLOG INSULIN (NovoLOG) PER UNIT SC SCH ×3 (06:00→17:35)
[2017-01-29 06:06] LABS: MEAN CORPUSCULAR HGB CONC 31.4 g/dl (32.0-36.5); MEAN CORPUSCULAR VOLUME 79.6 fl (80.0-96.0); RED CELL DISTRIBUTION WIDTH 17.4 % (11.5-14.5); WHITE BLOOD COUNT 6.4 K/mm3 (4.0-10.0)
[2017-01-29 06:36] LABS: ALBUMIN/GLOBULIN RATIO 0.91 (1.00-1.93); ALKALINE PHOSPHATASE 110 U/L (45-117); ALT/SGPT 25 U/L (12-78); ANION GAP 6 MEQ/L (8-16); AST/SGOT 25 U/L (15-37); BILIRUBIN,TOTAL 0.9 MG/DL (0.2-1.0); BLOOD UREA NITROGEN 10 MG/DL (7-18); CALCIUM LEVEL 8.3 MG/DL (8.8-10.2); CARBON DIOXIDE LEVEL 29 MEQ/L (21-32); CHLORIDE LEVEL 104 MEQ/L (98-107); CREATININE FOR GFR 0.64 MG/DL (0.70-1.30); GLOMERULAR FILTRATION RATE > 60.0 (>49); GLUCOSE, FASTING 79 MG/DL (80-110); MAGNESIUM LEVEL 2.3 MG/DL (1.8-2.4); POTASSIUM SERUM 4.2 MEQ/L (3.5-5.1); SODIUM LEVEL 139 MEQ/L (136-145); TOTAL PROTEIN 6.3 GM/DL (6.4-8.2)
--- NOTE | 2017-01-29 08:44 | IPN ---
DATE: 01/29/2017 Mr. Patrick just had a NG tube pulled out when I walked into the room and he still had a lot of discomfort in his throat, but nevertheless he tells me he feels reasonably well. There is a plan to have a hemicolectomy later today. Actually, his heparin was discontinued at approximately 2:00 a.m. in preparation for a 10:00 a.m. surgery, but it turns out that it will not be until about 3 o'clock in the afternoon. Vital Signs: Blood pressure 138/82. Heart rate around 70. I reviewed his telemetry tracing. There were no long pauses last night, but he had few episodes of relatively mild bradycardia in the high 40s. His weight is 103 kg. Fluid balance was slightly positive yesterday. He is alert and oriented appropriate. His jugular venous pulse (JVP) is not up. Lungs are fairly clear to auscultation. I do not appreciate any crackles, wheezing or rhonchi. Heart: Exam muffled due to his obesity, but irregular rhythm. No gallop. There is a faint murmur at the apex. Abdomen is soft, but mildly distended. There is trace peripheral edema. Neurologically, he is intact. Laboratory-miguel, CBC: Hemoglobin 11.5, hematocrit 36 and platelet count 173,000. Basic metabolic panel is normal. Liver function tests are normal. Albumin is 3.0. ASSESSMENT/PLAN: Mr. Patrick is a 67-year-old man who receives most of his medical care in [place]. We know that he has severe LV systolic dysfunction and chronic atrial fibrillation, but the etiology is not completely clear. The patient states that he had a myocardial infarction approximately 30 years ago, but at that point no intervention was performed. Nevertheless, he has good exertional tolerance at his baseline. He denies any dyspnea or paroxysmal nocturnal dyspnea (PND). He has no anginal symptoms. He is facing essential surgery as his large colon is virtually completely obstructed by a large mass. Consequently, I think he should proceed. The digoxin was discontinued because he had pauses, but he is reasonably well-controlled on metoprolol only. I do not appreciate any clinical congestive heart failure. Unfortunately, his heparin was discontinued a little sooner than would have been desired, but at this point I do not believe that reintroducing the infusion for only about 3 or 4 hours will actually make any significant reduction in thromboembolic risk and consequently I will leave him without heparin until the surgery is done this afternoon.
[2017-01-29] MEDS: PANTOPRAZOLE 40MG INJ (PROTONIX) (C9113) IV SCH (09:00)
[2017-01-29] MEDS: SENOKOT S TAB PO SCH ×2 (09:00→22:44)
[2017-01-29] MEDS: METOPROLOL TART 50 MG TAB PO SCH ×2 (09:12→21:00)
[2017-01-29] MEDS: LISINOPRIL 10 MG TAB PO SCH (09:13)
[2017-01-29] MEDS: ERTAPENEM SODIUM 1 GM in NS MINI-BAG PLUS 50 ML IV SCH (15:48)
[2017-01-29] MEDS ORDERED: DESFLURANE 240 ML INHALANT As Ordered ONE (16:15)
[2017-01-29] MEDS ORDERED: SEVOFLURANE INHAL SOLN 250 ML BTL As Ordered ONE (16:17)
[2017-01-29] MEDS ORDERED: BUPIVACAINE/EPIN 0.25% 30 ML VIAL As Ordered ONE (16:42)
[2017-01-29] MEDS ORDERED: ETOMIDATE INJ 20MG/10ML VIAL As Ordered ONE (17:24)
[2017-01-29] MEDS ORDERED: MIDAZOLAM INJ 2 MG/2 ML VIAL (J2250) As Ordered ONE (17:24)
[2017-01-29] MEDS ORDERED: fentaNYL 100 MCG/2 ML INJECTION (J3010) As Ordered ONE ×4 (17:24→20:36)
[2017-01-29] MEDS ORDERED: ePHEDrine SULFATE 25 MG/5 ML(5MG/ML) SYRINGE As Ordered ONE (17:24)
[2017-01-29] MEDS ORDERED: PHENYLephrine HCL 500 MCG/5 ML (100MCG/ML) SYRINGE (J2370) As Ordered ONE (17:24)
[2017-01-29] MEDS ORDERED: LIDOCAINE 2% INJ 100 MG/5 ML SDV (FOR ANES.) As Ordered ONE (17:24)
[2017-01-29] MEDS ORDERED: ROCURONIUM BROMIDE 50 MG/5 ML VIAL/SYRINGE As Ordered ONE ×2 (17:24→19:08)
[2017-01-29] MEDS ORDERED: SUCCINYLCHOLINE 100 MG/5 ML SYRINGE (J0330) As Ordered ONE (17:25)
[2017-01-29] MEDS ORDERED: ESMOLOL INJ 100MG/10ML VIAL As Ordered ONE (17:56)
[2017-01-29] MEDS ORDERED: METOPROLOL 5 MG/5 ML VIAL As Ordered ONE (18:38)
[2017-01-29] MEDS ORDERED: ONDANSETRON 4MG/2ML VIAL (J2405) As Ordered ONE (19:14)
[2017-01-29] MEDS ORDERED: MORPHINE 10 MG/ML 1ML VIAL As Ordered ONE (19:16)
[2017-01-29] MEDS ORDERED: GLYCOPYRROLATE INJ 0.2 MG/ML 2 ML VIAL As Ordered ONE (19:19)
[2017-01-29] MEDS ORDERED: NEOSTIGMINE 1MG/ML 5 ML SYRINGE (J2710) As Ordered ONE (19:19)
[2017-01-29] MEDS: LR 1,000 ML IV SCH (19:45)
[2017-01-29] MEDS ORDERED: MORPHINE 2 MG/ML 1ML SYRINGE As Ordered ONE ×4 (19:55→20:26)
[2017-01-29] MEDS: MORPHINE 2 MG/ML 1ML SYRINGE IV PRN ×4 (19:55→20:25)
[2017-01-29] MEDS ORDERED: ONDANSETRON 4MG/2ML VIAL (J2405) IV PRN ×2 (20:00→21:00)
[2017-01-29] MEDS ORDERED: LR 1,000 ML IV SCH (20:00)
[2017-01-29] MEDS ORDERED: fentaNYL 100 MCG/2 ML INJECTION (J3010) IV PRN (20:00)
[2017-01-29] MEDS ORDERED: KETOROLAC 30 MG/ML VIAL (J1885) As Ordered ONE (20:42)
[2017-01-29] MEDS ORDERED: KETOROLAC 30 MG/ML VIAL (J1885) IV ONE (20:45)
[2017-01-29] MEDS ORDERED: NS 1,000 ML IV SCH (20:53)
[2017-01-29] MEDS ORDERED: MORPHINE 1MG/ML IN 0.9% NACL 100ML IV BAG As Ordered ONE (20:57)
[2017-01-29] MEDS ORDERED: NALOXONE INJ 0.4 MG/1 ML VIAL (J2310) IV PRN (21:00)
[2017-01-29] MEDS ORDERED: NALBUPHINE HCL 10 MG/ML AMP (J2300) IV PRN (21:00)
[2017-01-29] MEDS ORDERED: diphenhydrAMINE INJ 50MG/ML VIAL (J1200) IV PRN (21:00)
[2017-01-29] MEDS ORDERED: MORPHINE 1MG/ML IN 0.9% NACL 100ML IV BAG IV PRN (21:00)
[2017-01-29] MEDS ORDERED: EPIDURAL/PCA KEYS XX PRN (21:00)
[2017-01-29] MEDS ORDERED: METOPROLOL TART 50 MG TAB As Ordered ONE (21:36)
[2017-01-30] VITALS (8 sets, daily range): BP systolic 136–170; BP diastolic 78–104
[2017-01-30] MEDS: HumaLOG INSULIN (NovoLOG) PER UNIT SC SCH ×4 (00:53→17:58)
[2017-01-30] MEDS: LR 1,000 ML IV SCH ×3 (00:56→19:59)
[2017-01-30] MEDS: KETOROLAC 30 MG/ML VIAL (J1885) IV SCH ×4 (01:54→18:03)
[2017-01-30] MEDS: METOPROLOL 5 MG/5 ML VIAL IV SCH (05:26)
--- NOTE | 2017-01-30 06:45 | RO ---
DATE OF PROCEDURE: 01/29/2017 PREOPERATIVE DIAGNOSIS: Right colon mass and incarcerated umbilical hernia. POSTOPERATIVE DIAGNOSIS: Right colon mass and incarcerated umbilical hernia. PROCEDURE: Laparoscopic right hemicolectomy with open repair of incarcerated umbilical hernia. SURGEON: Dr. Reg Gonzalez SCALING MACHINE OPERATOR: Dr. Fontenot ANESTHESIA: General. ESTIMATED BLOOD LOSS: 50. COMPLICATIONS: None. INDICATIONS FOR PROCEDURE: The patient is a 67-year-old male who presents to the emergency room (ER) with abdominal pain, nausea and vomiting and found to have a complete versus partial colonic obstruction on CAT scan. He had a colonoscopy completed on Sunday which did confirm that there is a mass in the ascending colon that was unable to be traversed. Biopsies were taken at the time of pathology and still pending. However, due to the obstruction recommendation was to proceed with laparoscopic possible open right hemicolectomy as well as repair of his umbilical hernia at the same time. Risks and benefits of the procedure not limited to, but including bleeding, infection, hernia formation, hernia recurrence, damage to surrounding structures and possible need for further surgery were all discussed with the patient. Informed consent was obtained and the procedure was planned. PROCEDURE: The patient brought back to operating room two after sufficient sedation and the abdomen was sterilely prepped and draped. Next, a time-out was done to confirm proper patient and proper procedure. Following that, a 5 mm incision made in the left lower quadrant, a Veress needle was inserted and the abdomen was insufflated to 15 mm of Mercury. Next, the Veress needle was removed. A 5 mm OptiView port was used to gain access to the abdomen. Once the abdomen was entered, another 5 mm port was placed supraumbilically in the midline, and another 5 mm port in the left lower quadrant. Next, using the Enseal, the hernia contents and hernia sac were carefully dissected free from the umbilical hernia leaving the defect. Once that was completed, starting with the omentum, it was transected from the proximal third of the transverse colon down. Next, the gastrocolic ligament was entered and this was carefully dissected free all way around the hepatocolic ligament around the hepatic flexure of the colon. Next, the peritoneal reflection all along the descending colon was taken down. There were adhesions high up on the lateral right wall around where the mass was located. This was all dissected carefully and the peritoneum in this area was all taken along with the specimen all the way down around the base of the appendix. This dissection was continued superior and inferiorly as we continued to mobilize the right colon towards the midline. Once this was all completely mobilized and the colon was dissected free from the duodenum and able to reach over towards the midline, the midline incision was made for about 6 cm right at the site of the supraumbilical 5 mm port site. The skin incision was made. Electrocautery was used to carry the incision down through the fascia and into the abdomen. Once the abdomen was entered, the Mobius wound protector was placed. The specimen was then brought out through the incision. Anastomosis locations were identified in both the transverse colon as well as the terminal ileum. These were brought together and little windows were made in the mesentery at each of these positions. A [id number] stapler was used to transect the colon and the terminal ileum at these points. Next, the mesentery was carefully taken down using the Enseal where the ileocolic vessel was identified. This was carefully isolated using the Enseal and then the vessel was clamped on both sides, cut with the Enseal and then #0 Vicryl suture tie was also used to ligate the proximal side as reinforcement. Once this was completed, the specimen was all removed. Next, a tqio-ut-ldpe anastomosis was done between the transverse colon and the terminal ileum. This was done using two [id number] staplers. Once that was completed, the corners were oversewn with Lembert sutures with #3-0 silk suture. The anastomosis was then covered with a layer of Tisseel and then placed back inside the abdomen. A 19-Yakut Daron drain was placed over top of the anastomosis and brought out through the left lower quadrant port site. The fascial defect at the umbilical hernia was then closed from the inside using interrupted #0 Vicryl sutures and looped PDS was then used to reapproximate the fascia at the extraction site for the colon in the midline. This was done in a running fashion. Once that was completed, jaswinder were used to approximate the skin edges. A drain that was brought out through the left lower quadrant was left in place. The abdomen was reinsufflated. Laparoscopically, the drain was placed right over top of the anastomosis. Any signs of residual bleeding were looked for, nothing was identified. The abdomen then desufflated again. The drain was sutured in place with a #3-0 Prolene suture. The ports were removed. The port sites were closed with jaswinder, thus completing the procedure. The patient tolerated the procedure well and was sent to postanesthesia care unit (PACU) in stable condition.
[2017-01-30] MEDS: SODIUM CHLORIDE 0.9% INJ 10 ML SYR IV SCH ×2 (06:46→17:28)
[2017-01-30 07:10] LABS: BASO % 0.2 % (0.0-1.0); EOS # 0.1 K/mm3 (0.0-0.50); EOS % 0.6 % (0.0-3.0); LARGE UNSTAINED CELL # 0.2 K/mm3 (0.0-0.4); LARGE UNSTAINED CELL % 1.8 % (0.0-4.0); LYMPH # 1.8 K/mm3 (1.5-4.5); MEAN CORPUSCULAR HEMOGLOBIN 24.3 pg (27.0-33.0); MEAN CORPUSCULAR VOLUME 81.2 fl (80.0-96.0); MONO # 0.7 K/mm3 (0.0-0.8); MONO % 6.9 % (0.0-5.0); NEUTROPHILS % 75.3 % (36.0-66.0); PLATELET COUNT, AUTOMATED 155 k/mm3 (150-450); RED CELL DISTRIBUTION WIDTH 17.7 % (11.5-14.5); WHITE BLOOD COUNT 10.6 K/mm3 (4.0-10.0)
[2017-01-30 07:31] LABS: ALBUMIN 2.8 GM/DL (3.2-5.2); ALBUMIN/GLOBULIN RATIO 0.85 (1.00-1.93); ALKALINE PHOSPHATASE 106 U/L (45-117); ALT/SGPT 26 U/L (12-78); ANION GAP 7 MEQ/L (8-16); AST/SGOT 25 U/L (15-37); BILIRUBIN,TOTAL 1.3 MG/DL (0.2-1.0); BLOOD UREA NITROGEN 16 MG/DL (7-18); CALCIUM LEVEL 8.4 MG/DL (8.8-10.2); CARBON DIOXIDE LEVEL 29 MEQ/L (21-32); CHLORIDE LEVEL 107 MEQ/L (98-107); CREATININE FOR GFR 0.81 MG/DL (0.70-1.30); GLOMERULAR FILTRATION RATE > 60.0 (>49); GLUCOSE, FASTING 90 MG/DL (80-110); POTASSIUM SERUM 4.6 MEQ/L (3.5-5.1); SODIUM LEVEL 143 MEQ/L (136-145); TOTAL PROTEIN 6.1 GM/DL (6.4-8.2)
[2017-01-30] MEDS ORDERED: HEPARIN DRIP 25,000 UNITS in APPROPRIATE DILUENT 1 EA IV SCH (07:45)
[2017-01-30] MEDS ORDERED: HEPARIN SOD (PORCINE) 5000 UNITS/ML VIAL IV PRN ×2 (07:45→10:30)
--- NOTE | 2017-01-30 08:57 | IPN ---
DATE: 01/30/2017 Mr. Patrick had a hemicolectomy yesterday. He had some trouble with heart rate control. Prior to the surgery, he was quite bradycardic after he received the morning dose of metoprolol and then during the surgery he was on the other end relatively tachycardiac and received several IV doses of esmolol and metoprolol, but throughout the night his heart rate was well controlled. This morning, he feels reasonably well. He has a NG tube in again, but denies any nausea. He has had some soreness in his abdomen. He has not been passing gas yet. Blood pressure 146/80. Heart rate from 90s to low 100s. Afebrile. Saturation 99% on 2 liters of oxygen by nasal cannula. Fluid balance yesterday was slightly positive. The documented weight is 110 kg. He is alert, oriented and appropriate. His jugular venous pulse (JVP) does not look up. Lungs are relatively clear even though there are somewhat diminished breath sounds, probably due to abdominal pain. Heart exam reveals an irregularly irregular rhythm and I do not appreciate any gallop or rub. Abdomen is mildly distended, but is soft. There is mild generalized tenderness, but no guarding. Bowel sounds are present. Extremities: Have trace edema. Laboratory-miguel, hemoglobin 10.9, hematocrit 36 and platelet count 155,000. Basic metabolic panel is normal. Normal liver function tests. Albumin is 2.8 and PTT was 30. ASSESSMENT/PLAN: Mr. Patrick is a 67-year-old man who has chronic atrial fibrillation and cardiomyopathy with ejection fraction (EF) approximately 30%. He presented with bowel obstruction and was found to have a large colon mass and underwent hemicolectomy yesterday. As far as the management of atrial fibrillation is concerned, I will change the dosing of metoprolol to every 6 hours so we can adjust the dosing depending on his condition a little more flexibly. Otherwise, we will restart heparin without bolus. Once the GI tract is effective and we have a very good chance that the absorption is intact, I would restart Eliquis, but it is not likely to be at least for another day or two. Otherwise, the remaining issue remains with the surgical team. I do not believe that it is very likely that the patient will be able to go home tomorrow, even though I cannot rule it out.
[2017-01-30] MEDS ORDERED: APIXABAN 5 MG TAB (ELIQUIS) PO SCH (09:00)
[2017-01-30] MEDS ORDERED: NS 1,000 ML IV ONE ×3 (09:00→16:15)
[2017-01-30] MEDS: PANTOPRAZOLE 40MG INJ (PROTONIX) (C9113) IV SCH (10:11)
[2017-01-30] MEDS: LISINOPRIL 10 MG TAB PO SCH (10:11)
[2017-01-30] MEDS: SENOKOT S TAB PO SCH ×2 (10:12→21:47)
[2017-01-30] MEDS: METOPROLOL TART 25 MG TABLET PO SCH ×3 (10:12→18:02)
[2017-01-30] MEDS: HEPARIN DRIP 25,000 UNITS in APPROPRIATE DILUENT 1 EA IV SCH (11:02)
[2017-01-30] MEDS: NORCO, ANEXSIA 5/325MG TABLET (HYDROcodone/ACETAMINOPHEN) PO PRN (11:04)
[2017-01-30] MEDS: ERTAPENEM SODIUM 1 GM in NS MINI-BAG PLUS 50 ML IV SCH (16:13)
--- NOTE | 2017-01-30 17:07 | IPNPDOC ---
Text Note Date of Service The patient was seen on 01/30/17. NOTE Patient seen and examined at bedside. No acute overnight events reported. No new medical complaints. s/p hemicolectomy. have not yet passed gas Objective: GENERAL: NAD, sitting comfortably in chair HEENT: NC/AT, PERRL, EOMI, NG tube in place, edentulous (patient states he has his dentures, but does not currently wear them) RESPIRATORY: CTA B/L. CARDIOVASCULAR: Irregularly irregular, +S1S2 ABDOMEN: Soft, obese, distended, NT, +BS EXTREMITIES: +1 pitting edema B/L LE PSYCHIATRIC: AAOx3, conversant, pleasant. ASSESSMENT/PLAN: 67 M h/o afib on AC, HTN, [place] at age 36 and MRSA in the pass. presented with proximal ascending colon total obstruction. 1. Proximal ascending colon total obstruction - high suspicion for malignancy - pathology results Invasive moderately differentiated adenocarcinoma - s/p colonoscopy 01/26/17 - management as per primary team, general surgery - S/p ines-colectomy - 01/29/17 - diet and pain med as per surgery 2. Atrial fibrillation - RVR resolved - have increased metoprolol - cardiology consultated - complicated with known left atrial thrombus - TTE noted - Obtaining cardiology records from Dr. Case in [place], [place]. -patient was on Heparin drip d/w with Dr Gonzalez who is comfortable Restarting Eliquis or Heparin drip d/w Dr Ireland who prefer patient to be on heparin Drip for another day prior to switching to make sure patient has a functional GI tract 3. Hypertension - Continue lisinopril - obtain provider records from Dr. Mondragon in [place], [place] - continue metoprolol 4. Microcytosis without anemia 5. DVT prophylaxis - as per above heparin gtt Disposition: Plan for surgical intervention - s/p ines-colectomy VS,Fishbone, I+O VS, Fishbone, I+O Laboratory Tests 01/30/17 04:45 Red Blood Count 4.48, Mean Corpuscular Volume 81.2, Mean Corpuscular Hemoglobin 24.3 L, Mean Corpuscular Hemoglobin Concent 30.0 L, Red Cell Distribution Width 17.7 H, Neutrophils (%) (Auto) 75.3 H, Lymphocytes (%) (Auto) 15.0 L, Monocytes (%) (Auto) 6.9 H, Eosinophils (%) (Auto) 0.6, Basophils (%) (Auto) 0.2, Neutrophils # (Auto) 8.0 H, Lymphocytes # (Auto) 1.8, Monocytes # (Auto) 0.7, Eosinophils # (Auto) 0.1, Basophils # (Auto) 0.0, Calcium Level 8.4 L, Aspartate Amino Transf (AST/SGOT) 25, Alanine Aminotransferase (ALT/SGPT) 26, Alkaline Phosphatase 106, Total Bilirubin 1.3 H, Total Protein 6.1 L, Albumin 2.8 L Vital Signs Date Time Temp Pulse Resp B/P (MAP) Pulse Ox O2 Delivery O2 Flow Rate FiO2 01/30/17 16:00 98.1 83 18 136/78 (97) 98 Nasal Cannula 2.0 I&O- Last 24 Hours up to 6 AM 01/30/17 05:59 Intake Total 2600 ml Output Total 510 ml Balance 2090 ml JOSE JUAN MONTES MD Jan 30, 2017 17:07
[2017-01-30] MEDS ORDERED: AMINO AC/ELECTROLYTE/DEX/CALC 2,000 ML IV SCH (18:00)
[2017-01-30] MEDS ORDERED: FAT EMULSION IV 20% 500 ML IV SCH (18:00)
[2017-01-31] VITALS: BP 150/86
[2017-01-31] MEDS: KETOROLAC 30 MG/ML VIAL (J1885) IV SCH ×4 (00:53→17:28)
[2017-01-31] MEDS: METOPROLOL TART 25 MG TABLET PO SCH ×4 (00:53→17:36)
[2017-01-31] MEDS: NORCO, ANEXSIA 5/325MG TABLET (HYDROcodone/ACETAMINOPHEN) PO PRN ×3 (00:54→17:38)
[2017-01-31 03:13] LABS: MEAN CORPUSCULAR HEMOGLOBIN 24.1 pg (27.0-33.0); MEAN CORPUSCULAR HGB CONC 30.3 g/dl (32.0-36.5); MEAN CORPUSCULAR VOLUME 79.7 fl (80.0-96.0); RED CELL DISTRIBUTION WIDTH 17.7 % (11.5-14.5); WHITE BLOOD COUNT 8.2 K/mm3 (4.0-10.0)
[2017-01-31 03:31] LABS: ALBUMIN 2.5 GM/DL (3.2-5.2); ALBUMIN/GLOBULIN RATIO 0.71 (1.00-1.93); ALKALINE PHOSPHATASE 88 U/L (45-117); ALT/SGPT 22 U/L (12-78); ANION GAP 9 MEQ/L (8-16); AST/SGOT 17 U/L (15-37); BILIRUBIN,TOTAL 1.5 MG/DL (0.2-1.0); BLOOD UREA NITROGEN 15 MG/DL (7-18); CARBON DIOXIDE LEVEL 23 MEQ/L (21-32); CHLORIDE LEVEL 108 MEQ/L (98-107); GLOMERULAR FILTRATION RATE > 60.0 (>49); GLUCOSE, FASTING 143 MG/DL (80-110); MAGNESIUM LEVEL 1.9 MG/DL (1.8-2.4); POTASSIUM SERUM 3.9 MEQ/L (3.5-5.1); SODIUM LEVEL 140 MEQ/L (136-145)
[2017-01-31 04:00] VITALS: BP 163/93
[2017-01-31] MEDS: HEPARIN DRIP 25,000 UNITS in APPROPRIATE DILUENT 1 EA IV SCH (05:27)
[2017-01-31] MEDS: SODIUM CHLORIDE 0.9% INJ 10 ML SYR IV SCH ×2 (06:00→17:28)
[2017-01-31] MEDS: HumaLOG INSULIN (NovoLOG) PER UNIT SC SCH ×4 (06:00→17:38)
[2017-01-31 08:00] VITALS: BP 158/80
--- NOTE | 2017-01-31 08:25 | IPN ---
DATE: 01/31/2017 Mr. Patrick has been doing quite well. He started having bowel movements last night and then a bowel movement again this morning. He denies any chest pain or shortness of breath. He is still irritated by his nasogastric (NG) tube. Vital signs: Blood pressure 167/90. Heart rate has been 70s. He is afebrile. Saturation is 96% on room air. His heart rate accelerates into 120s with ambulation. Fluid balance yesterday was somewhat positive. The weight has not been documented yet this morning. He is alert and oriented and appropriate. He is sitting by his bed in a chair. His jugular venous pulse (JVP) is not up. Lungs are clear to auscultation with good air movement. Heart exam irregularly irregular rhythm. No gallop is noted. Abdomen is soft, still slightly tender. Bowel sounds are active. No edema. Neurologically intact. Laboratory miguel: CBC: Hemoglobin 9.9, hematocrit 32, platelet count 127,000. Basic metabolic panel is normal. ASSESSMENT AND PLAN: Mr. Patrick is a 67-year-old man who has ischemic cardiomyopathy and chronic atrial fibrillation. He had a large bowel obstruction due to cancer, underwent hemicolectomy. He seems to be recovering well. It seems that his gastrointestinal (GI) tract is working and he already has bowel movements. Consequently, I would have no objection that his heparin is discontinued and replaced with NOAC. He was on Eliquis previously. I would continue current dosing of beta-peyton for the time being. Before discharge home will decide on an eventual discharge dosing. I think that if everything goes truly, very well he might be able to go home tomorrow.
[2017-01-31] MEDS: LR 1,000 ML IV SCH ×2 (08:56→21:51)
[2017-01-31] MEDS: LISINOPRIL 10 MG TAB PO SCH (09:04)
[2017-01-31] MEDS: PANTOPRAZOLE 40MG INJ (PROTONIX) (C9113) IV SCH (09:05)
[2017-01-31] MEDS: SENOKOT S TAB PO SCH ×2 (09:05→21:00)
[2017-01-31 12:00] VITALS: BP 150/78
[2017-01-31] MEDS: APIXABAN 5 MG TAB (ELIQUIS) PO SCH ×2 (12:36→21:50)
[2017-01-31 16:00] VITALS: BP 148/78
[2017-01-31] MEDS: ERTAPENEM SODIUM 1 GM in NS MINI-BAG PLUS 50 ML IV SCH (16:46)
--- NOTE | 2017-01-31 19:09 | IPNPDOC ---
Text Note Date of Service The patient was seen on 01/31/17. NOTE Patient seen and examined at bedside. No acute overnight events reported. No new medical complaints. s/p hemicolectomy. 2 BM overnight Objective: GENERAL: NAD, sitting comfortably in chair HEENT: NC/AT, PERRL, EOMI, NG tube in place RESPIRATORY: CTA B/L. CARDIOVASCULAR: Irregularly irregular, +S1S2 ABDOMEN: Soft, obese, distended, NT, +BS EXTREMITIES: +1 pitting edema B/L LE PSYCHIATRIC: AAOx3, conversant, pleasant. ASSESSMENT/PLAN: 67 M h/o afib on AC, HTN, [place] at age 36 and MRSA in the pass. presented with proximal ascending colon total obstruction. 1. Proximal ascending colon total obstruction - high suspicion for malignancy - pathology results Invasive moderately differentiated adenocarcinoma - s/p colonoscopy 01/26/17 - management as per primary team, general surgery - S/p ines-colectomy - 01/29/17 - diet and pain med as per surgery 2. Atrial fibrillation - RVR resolved - have increased metoprolol - cardiology consultated - complicated with known left atrial thrombus - TTE noted - Obtaining cardiology records from Dr. Csae in [place], [place]. -patient was on Heparin drip d/w with Dr Carlos Ireland Switched for heparin drip to Eliquis 3. Hypertension - Continue lisinopril - obtain provider records from Dr. Mondragon in [place], [place] - continue metoprolol 4. Microcytosis without anemia 5. DVT prophylaxis -Eliquis Disposition: s/p ines-colectomy, as per surgery VS,Carlito, I+O VS, Carlito, I+O Laboratory Tests 01/31/17 02:58 Red Blood Count 4.08 L, Mean Corpuscular Volume 79.7 L, Mean Corpuscular Hemoglobin 24.1 L, Mean Corpuscular Hemoglobin Concent 30.3 L, Red Cell Distribution Width 17.7 H, Calcium Level 8.0 L, Aspartate Amino Transf (AST/SGOT ) 17, Alanine Aminotransferase (ALT/SGPT) 22, Alkaline Phosphatase 88, Total Bilirubin 1.5 H, Total Protein 6.0 L, Albumin 2.5 L Vital Signs Date Time Temp Pulse Resp B/P (MAP) Pulse Ox O2 Delivery O2 Flow Rate FiO2 01/31/17 18:20 20 Room Air 01/31/17 17:36 92 158/88 01/31/17 16:00 98.5 97 01/30/17 16:00 2.0 I&O- Last 24 Hours up to 6 AM 01/31/17 05:59 Intake Total 5018 ml Output Total 2948 ml Balance 2070 ml JOSE JUAN MONTES MD Jan 31, 2017 19:09
[2017-01-31 20:00] VITALS: BP 136/80
[2017-02-01] VITALS: BP 158/90
[2017-02-01] MEDS: KETOROLAC 30 MG/ML VIAL (J1885) IV SCH ×4 (00:20→18:00)
[2017-02-01] MEDS: METOPROLOL TART 25 MG TABLET PO SCH ×4 (00:20→17:59)
[2017-02-01] MEDS: NORCO, ANEXSIA 5/325MG TABLET (HYDROcodone/ACETAMINOPHEN) PO PRN ×3 (00:21→21:32)
[2017-02-01 04:00] VITALS: BP 135/77
[2017-02-01] MEDS: SODIUM CHLORIDE 0.9% INJ 10 ML SYR IV SCH ×2 (05:17→17:59)
[2017-02-01 05:53] LABS: MEAN CORPUSCULAR HEMOGLOBIN 24.9 pg (27.0-33.0); MEAN CORPUSCULAR HGB CONC 31.7 g/dl (32.0-36.5); MEAN CORPUSCULAR VOLUME 78.5 fl (80.0-96.0); RED CELL DISTRIBUTION WIDTH 17.6 % (11.5-14.5); WHITE BLOOD COUNT 7.9 K/mm3 (4.0-10.0)
[2017-02-01 06:23] LABS: ALBUMIN 2.5 GM/DL (3.2-5.2); ALBUMIN/GLOBULIN RATIO 0.86 (1.00-1.93); ALKALINE PHOSPHATASE 85 U/L (45-117); ALT/SGPT 18 U/L (12-78); ANION GAP 8 MEQ/L (8-16); AST/SGOT 16 U/L (15-37); BLOOD UREA NITROGEN 13 MG/DL (7-18); CALCIUM LEVEL 8.1 MG/DL (8.8-10.2); CARBON DIOXIDE LEVEL 27 MEQ/L (21-32); CHLORIDE LEVEL 107 MEQ/L (98-107); CREATININE FOR GFR 0.63 MG/DL (0.70-1.30); GLOMERULAR FILTRATION RATE > 60.0 (>49); GLUCOSE, FASTING 80 MG/DL (80-110); MAGNESIUM LEVEL 1.8 MG/DL (1.8-2.4); POTASSIUM SERUM 3.9 MEQ/L (3.5-5.1); SODIUM LEVEL 142 MEQ/L (136-145); TOTAL PROTEIN 5.4 GM/DL (6.4-8.2)
--- NOTE | 2017-02-01 08:04 | IPN ---
DATE: 02/01/2017 Mr. Patrick is anxious to get out of here. He is frustrated by the food he is getting and he still has an nasogastric tube in. He denies any cardiovascular symptoms, specifically denies any chest pain or shortness of breath. On physical exam, blood pressure 135/70, heart rate is in the 70s and has been well-controlled all around. He is afebrile. Saturation 98% on room air. His fluid balance yesterday was positive for 2 liters. It was over 3 liters the day before. Weight is now 109.4 kg. His jugular venous pressure is not up. Lungs are clear to auscultation with good air movement. Heart exam reveals irregular rhythm but no gallop or rub is appreciated. Abdomen is soft, still mildly tender. Bowel sounds are present. There is about 1 to 2+ edema to about mid shins. LABORATORY: Hemoglobin 10.4, hematocrit 32.8 and platelet count 138,000. Basic metabolic panel is normal and albumin is 2.5. ASSESSMENT/PLAN: Mr. Patrick is 67-year-old man who has longstanding history of atrial fibrillation and likely ischemic cardiomyopathy with ejection fraction approximately 30%. He underwent hemicolectomy for large obstructive mass. It looks like he has been recovering well. He is now back to his baseline Eliquis and has been rate control using metoprolol. I believe that with TPN and some IV fluids, he started developing peripheral edema and I discontinued his IV fluids. He already has some oral intake and I expect that the NG tube will be removed today. I do not believe that we have to give him Lasix as yet. I suspect that once his oral intake normalizes that it will probably self correct. Otherwise, from my perspective, he can be discharged home even today. He has been receiving virtually all doses of metoprolol and consequently can probably be discharged on 50 mg twice a day and no digoxin. I will plan to see him in follow-up probably within a week or so.
[2017-02-01 08:31] VITALS: BP 168/74
[2017-02-01] MEDS: APIXABAN 5 MG TAB (ELIQUIS) PO SCH ×2 (08:37→21:23)
[2017-02-01] MEDS: LISINOPRIL 10 MG TAB PO SCH (08:37)
[2017-02-01] MEDS: SENOKOT S TAB PO SCH ×2 (08:38→21:23)
[2017-02-01] MEDS: PANTOPRAZOLE 40MG INJ (PROTONIX) (C9113) IV SCH (08:38)
[2017-02-01 11:40] VITALS: BP 150/86
[2017-02-01 16:00] VITALS: BP 148/64
--- NOTE | 2017-02-01 17:31 | IPNPDOC ---
Text Note Date of Service The patient was seen on 02/01/17. NOTE Patient seen and examined at bedside. No acute overnight events reported. No new medical complaints. s/p hemicolectomy. making BM, and tolerating oral Objective: GENERAL: NAD, sitting comfortably in chair HEENT: NC/AT, PERRL, EOMI, NG tube in place RESPIRATORY: CTA B/L. CARDIOVASCULAR: Irregularly irregular, +S1S2 ABDOMEN: Soft, obese, distended, NT, +BS EXTREMITIES: +1 pitting edema B/L LE PSYCHIATRIC: AAOx3, conversant, pleasant. ASSESSMENT/PLAN: 67 M h/o afib on AC, HTN, [place] at age 36 and MRSA in the pass. presented with proximal ascending colon total obstruction. 1. Proximal ascending colon total obstruction - pathology results Invasive moderately differentiated adenocarcinoma, +lymph node - s/p colonoscopy 01/26/17 - management as per primary team, general surgery - S/p ines-colectomy - 01/29/17 - diet and pain med as per surgery, advanced to regular cancer navigator, f/u Dr Shoemaker in 7 days 2. Atrial fibrillation - RVR resolved - have increased metoprolol - cardiology consultated - complicated with known left atrial thrombus - TTE noted - Obtaining cardiology records from Dr. Case in [place], [place]. -patient was on Heparin drip d/w with Dr Carlos Ireland Switched from heparin drip to Eliquis 3. Hypertension - Continue lisinopril - obtain provider records from Dr. Mondragon in [place], [place] - continue metoprolol 4. Microcytosis without anemia 5. DVT prophylaxis -Eliquis Disposition: s/p ines-colectomy, as per surgery VS,Carlito, I+O VS, Salonie, I+O Laboratory Tests 02/01/17 05:31 Red Blood Count 4.17 L, Mean Corpuscular Volume 78.5 L, Mean Corpuscular Hemoglobin 24.9 L, Mean Corpuscular Hemoglobin Concent 31.7 L, Red Cell Distribution Width 17.6 H, Calcium Level 8.1 L, Aspartate Amino Transf (AST/SGOT ) 16, Alanine Aminotransferase (ALT/SGPT) 18, Alkaline Phosphatase 85, Total Bilirubin 2.0 H, Total Protein 5.4 L, Albumin 2.5 L Vital Signs Date Time Temp Pulse Resp B/P (MAP) Pulse Ox O2 Delivery O2 Flow Rate FiO2 02/01/17 12:30 20 Room Air 02/01/17 11:41 95 150/86 02/01/17 11:40 98.8 98 01/30/17 16:00 2.0 I&O- Last 24 Hours up to 6 AM 02/01/17 06:00 Intake Total 4441 ml Output Total 2590 ml Balance 1851 ml JOSE JUAN MONTES MD Feb 01, 2017 17:31
[2017-02-01 20:00] VITALS: BP 144/82
[2017-02-02] VITALS: BP 148/82
[2017-02-02] MEDS: KETOROLAC 30 MG/ML VIAL (J1885) IV SCH ×3 (00:13→11:51)
[2017-02-02] MEDS: METOPROLOL TART 25 MG TABLET PO SCH ×3 (00:13→11:50)
[2017-02-02 04:00] VITALS: BP 139/85
[2017-02-02] MEDS: SODIUM CHLORIDE 0.9% INJ 10 ML SYR IV SCH (06:21)
[2017-02-02 06:56] LABS: MEAN CORPUSCULAR HEMOGLOBIN 24.7 pg (27.0-33.0); MEAN CORPUSCULAR HGB CONC 31.2 g/dl (32.0-36.5); MEAN CORPUSCULAR VOLUME 79.1 fl (80.0-96.0); RED CELL DISTRIBUTION WIDTH 17.7 % (11.5-14.5); WHITE BLOOD COUNT 8.6 K/mm3 (4.0-10.0)
[2017-02-02 07:15] LABS: ALBUMIN 2.5 GM/DL (3.2-5.2); ALBUMIN/GLOBULIN RATIO 0.83 (1.00-1.93); ALKALINE PHOSPHATASE 111 U/L (45-117); ALT/SGPT 19 U/L (12-78); ANION GAP 11 MEQ/L (8-16); AST/SGOT 17 U/L (15-37); BILIRUBIN,TOTAL 2.7 MG/DL (0.2-1.0); BLOOD UREA NITROGEN 13 MG/DL (7-18); CALCIUM LEVEL 8.3 MG/DL (8.8-10.2); CARBON DIOXIDE LEVEL 26 MEQ/L (21-32); CHLORIDE LEVEL 104 MEQ/L (98-107); CREATININE FOR GFR 0.63 MG/DL (0.70-1.30); GLOMERULAR FILTRATION RATE > 60.0 (>49); GLUCOSE, FASTING 90 MG/DL (80-110); MAGNESIUM LEVEL 1.7 MG/DL (1.8-2.4); POTASSIUM SERUM 4.2 MEQ/L (3.5-5.1); SODIUM LEVEL 141 MEQ/L (136-145); TOTAL PROTEIN 5.5 GM/DL (6.4-8.2)
[2017-02-02] MEDS ORDERED: MAG SULF 1GM/100ML (MAG RUN) 1 GM in APPROPRIATE DILUENT 1 EA IV ONE (07:30)
[2017-02-02 07:42] VITALS: BP 150/78
[2017-02-02] MEDS ORDERED: FUROSEMIDE 20 MG/2 ML VIAL (J1940) IV ONE (07:45)
[2017-02-02] MEDS: SENOKOT S TAB PO SCH (08:15)
[2017-02-02] MEDS: APIXABAN 5 MG TAB (ELIQUIS) PO SCH (08:15)
[2017-02-02] MEDS: PANTOPRAZOLE 40MG INJ (PROTONIX) (C9113) IV SCH (08:15)
[2017-02-02] MEDS: LISINOPRIL 10 MG TAB PO SCH (08:16)
--- NOTE | 2017-02-02 09:42 | IPN ---
DATE: 02/02/2017 Mr. Patrick had a reasonably good night. He did not have any chest pain or shortness of breath. Unfortunately, he still has significant output from his abdominal drain. His heart rate throughout the night has been reasonably well-controlled around 100 beats per minute. He has been afebrile. Saturation is in high 90s on room air. Blood pressure 142/84. His fluid balance yesterday was about 1/2 liter positive. Weight is documented at 106. He is alert and oriented and appropriate. His JVP does not look high and his lungs are clear to auscultation. Heart Exam: Irregular rhythm. No gallop or rub is appreciated. Murmur is unchanged, faint apical murmur. Abdomen is soft, but still diffusely tender. He has a 2-3+ peripheral edema to his knees while sitting and semi-lying in his reclining chair overnight. LABORATORY: Basic metabolic panel is normal. Potassium is 4.2, creatinine 0.6, magnesium 1.7, albumin 2.5. CBC reveals hemoglobin 11.2, hematocrit 36 and platelet count 173,000 ASSESSMENT/PLAN: Mr. Patrick is a 67-year-old man who has ischemic cardiomyopathy and severe LV systolic dysfunction together with chronic atrial fibrillation. He presented with bowel obstruction and underwent hemicolectomy. The postoperative course from cardiac perspective has been relatively uneventful. I discontinued his outpatient digoxin because he had significant pauses, even though they never reached worrisome levels. He is currently essentially on 50 mg of metoprolol twice a day and I would leave it as such. I am going to give him a single dose of Lasix because he is significantly edematous and he has Lasix for as needed use as home and he can utilize it at his own discretion. From my perspective, he is okay for discharge. I will see him before he leaves for [place] in approximately 1 week.
[2017-02-02 11:50] VITALS: BP 150/78
[2017-02-02] MEDS ORDERED: NORC1TAB4 PO (12:14)
[2017-02-02] MEDS ORDERED: METO1TAB7 PO (12:14)
[2017-02-02] MEDS ORDERED: SENN1TAB2 PO (12:14)
--- NOTE | 2017-02-02 15:27 | DSES ---
DATE OF ADMISSION: 01/22/2017 DATE OF DISCHARGE: 02/02/2017 FINAL DIAGNOSES: 1. 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 2. Atrial fibrillation with rapid ventricular response. 3. History of left atrial thrombus. 4. Hypertension. 5. Microcytic anemia. 6. History of hypertension. 7. Myocardial infarctions. PRIMARY CARE PROVIDER: Dr. Nate Mondragon in [place]. ASSOCIATE AGENT INSURANCE SALES: Dr. Luis Case in [facility]. INPATIENT ASSOCIATE AGENT INSURANCE SALES: Dr. Ireland. GENERAL SURGEON: Dr. Gonzalez. HISTORY OF PRESENT ILLNESS: This is a 67-year-old male patient visiting from [place] with underlying medical history of atrial fibrillation on chronic anticoagulation, left atrial thrombus, hypertension, myocardial infarction ([place]) at age 36, history of methicillin-resistant Staphylococcus aureus (MRSA), presented with abdominal pain, present intermittently for the past 4-6 months, initially was intermittent, has become more persistent, worsening over the last 1-1/2 months, reported aching pain occurring every 2-3 minutes and abdominal distention and bloating, with alternating periods of being able to consume food versus not able to consume liquids or meals. Was self treating with laxatives and enemas causing massive diarrhea with initial relief following the treatment. Also, patient reported not sleeping well and an approximately 20 pound weight loss for the past 4-6 months. In the emergency room, the patient's CT scan was done and shows an obstructing mass in the patient's ascending colon with obstruction. Subsequently, general surgery Dr. Gonzalez was called for admission. Hospitalist team was called for consultation. HOSPITAL COURSE: The patient was admitted under general surgery. Hospitalist team was called for consultation and for possible colonoscopy and hemicolectomy. The patient's Eliquis was on hold. Cardiology was consulted for atrial fibrillation with rapid ventricular response. The patient's metoprolol was increased echocardiogram was sent. The patient was started on heparin drip given the left atrial thrombus. Blood pressure medication was continued as well as intravenous (IV) beta [place] was provided. The patient's hemoglobin and hematocrit (H and H) were monitored. The patient's bowel prep was done, colonoscopy as done, with pathology sent showing adenocarcinoma, moderately differentiated. Subsequently, the patient had a right hemicolectomy by general surgery. Following the surgery, the patient's diet was advanced. IV fluids were given. The patient was taken off the nasogastric (NG) tube, restarted on Eliquis the second day after surgery. The patient currently is tolerating oral, making bowel movements, passing gas, ready for discharge for further care as outpatient. The cancer navigator has been consulted. The case also was discussed with Dr. Ginger Blanc, who will be seeing the patient as an outpatient in one week. OBJECTIVE: VITAL SIGNS: Temperature 98, pulse 106, respirations 18, blood pressure 150/78, pulse oximetry 96% on room air. GENERAL: Patient alert and oriented times three, in no acute distress. HEENT: Normocephalic, atraumatic. PULMONARY: Bilaterally clear to auscultation. CARDIAC: Irregularly irregular S1, S2. ABDOMEN: Soft, obese, mild distention. Surgical site clean, dry and intact. EXTREMITIES: 1+ edema bilateral lower extremities. LABORATORY DATA: WBC 8.6, hemoglobin and hematocrit 12.2 over 36, platelets 173. Chemistry: Sodium 141, potassium 4.2, chloride 104, bicarbonate 26, BUN 13, creatinine 0.6, magnesium 1.6. DISCHARGE MEDICATIONS: - [place] 5/325 mg by mouth every six hours as needed - senna 8.6/50 mg by mouth twice a day - Eliquis 5 mg by mouth twice a day - aspirin 81 mg by mouth daily - digoxin 0.125 mg by mouth daily - lisinopril 10 mg by mouth daily - metoprolol increased to 50 mg by mouth twice a day DISCHARGE INSTRUCTIONS: The patient is instructed to followup with primary care provider after returning to [place]. Furthermore, followup with Dr. Gonzalez in one week on next week, and followup with Dr. Ireland in seven days and followup with Dr. Ginger Blanc in seven days. Return to the hospital if symptoms worsen.
== END 2017-02-02 14:35 | disposition home or self-care (01) | DRG 330 ==
LOC: M ED 06:48 → M ED INP 12:15 → M PED 13:11 → M PCU 15:09
PROVIDERS: ADMIT Surgery; ATTEND Hospitalist
PROC: 02HV33Z Insertion of Infusion Device into Superior Vena Cava, Percutaneous Approach (ICD-10-PCS; 2017-01-25)
PROC: 0DBK8ZX Excision of Ascending Colon, Via Natural or Artificial Opening Endoscopic, Diagnostic (ICD-10-PCS; 2017-01-26)
PROC: 0DBK4ZZ Excision of Ascending Colon, Percutaneous Endoscopic Approach (ICD-10-PCS; principal; 2017-01-29 10:00)
PROC: 0WQF4ZZ Repair Abdominal Wall, Percutaneous Endoscopic Approach (ICD-10-PCS; 2017-01-29 10:00)
DX: C18.2 Malignant neoplasm of ascending colon (principal); I48.1 Persistent atrial fibrillation; I42.9 Cardiomyopathy, unspecified; K42.0 Umbilical hernia with obstruction, without gangrene; C79.89 Secondary malignant neoplasm of other specified sites; D50.9 Iron deficiency anemia, unspecified; I48.2 Chronic atrial fibrillation; I10 Essential (primary) hypertension; E66.9 Obesity, unspecified; I25.2 Old myocardial infarction; Z86.14 Personal history of Methicillin resistant Staphylococcus aureus infection; Z87.891 Personal history of nicotine dependence; Z79.82 Long term (current) use of aspirin; Z79.899 Other long term (current) drug therapy; Z68.32 Body mass index [BMI] 32.0-32.9, adult